=== PATIENT | female | born 1940 | race Hispanic/Latino ===

== ENCOUNTER 2016-07-21 14:08 | Inpatient (IN) | payer MEDICARE, BC ==
[2016-07-21 14:15] VITALS: BMI 24.3
--- NOTE | 2016-07-21 14:20 | ED PDOC ---
Arrival/HPI - General Time Seen by Provider: 07/21/16 14:17 Historian: Patient - History of Present Illness Narrative History of Present Illness (Text): 07/21/16 14:47 Maoj Chahal is a 75 year old female whose past medical history includes Hyperlipidemia, Hypertension, Anxiety, and Bradycardia, who presents to the emergency department complaining of lightheadedness and chest palpitations for one week. Patient's symptoms are also accompanying with generalized weakness. Patient does not report chest pain, however when laid down patient feels left sided chest discomfort described as achy. Patient also reports feeling stressed because of her is feeling ill. Patient otherwise denies any fever, chills, shortness of breath, nausea, vomiting, diarrhea, urinary symptoms, back pain, neck pain, headache, or any other complaints. PMD: Dr. Spear Order Schedule Clerk: Dr. Cotto and Dr. Daomn Time/Duration: 1 week Symptom Onset: Gradual Symptom Course: Unchanged Activities at Onset: Light Context: Home Past Medical History - Provider Review Nursing Documentation Reviewed: Yes - Infectious Disease Hx of Infectious Diseases: None - Tetanus Immunization Tetanus Immunization: Unknown - Cardiac Hx Cardiac Disorders: Yes Hx Congestive Heart Failure: Yes Hx Hypertension: Yes - Pulmonary Hx Chronic Obstructive Pulmonary Disease (COPD): No - Neurological HX Cerebrovascular Accident: Yes (2006) - HEENT Hx HEENT Disorder: Yes (pt. neto issa.) - Renal Hx Renal Failure: No - Endocrine/Metabolic Hx Diabetes Mellitus Type 1: No Hx Diabetes Mellitus Type 2: No Hx Hypothyroidism: No - Hematological/Oncological Hx Cancer: No - Integumentary Hx Dermatological Disorder: No - Musculoskeletal/Rheumatological Hx Arthritis: No Hx Falls: No - Gastrointestinal Hx Gastroesophageal Reflux: No - Genitourinary/Gynecological Hx Genitourinary Disorders: No - Psychiatric Hx Psychophysiologic Disorder: No Hx Depression: No Hx Emotional Abuse: No Hx Physical Abuse: No Hx Substance Use: No - Surgical History Hx Coronary Stent: Yes (stent to carotid artery) Hx Hysterectomy: Yes - Anesthesia Hx Anesthesia: Yes Hx Anesthesia Reactions: No Hx Malignant Hyperthermia: No - Suicidal Assessment Feels Threatened In Home Enviroment: No Family/Social History - Physician Review Nursing Documentation Reviewed: Yes Family/Social History: No Known Family HX Smoking Status: Never Smoked Hx Alcohol Use: No Hx Substance Use: No Hx Substance Use Treatment: No Allergies/Home Meds Allergies/Adverse Reactions: Allergies No Known Allergies Allergy (Verified 05/05/16 18:23) Home Medications: Home Meds Medication Instructions Recorded Confirmed Alprazolam [Xanax] 0.25 mg PO PRN PRN 08/26/11 07/21/16 Clopidogrel [Plavix] 1 tab PO DAILY 05/05/16 07/21/16 Losartan/Hydrochlorothiazide 1 tab PO DAILY 05/05/16 07/21/16 [Hyzaar 100-25 Tablet] Aspirin [Aspirin Chewable] 1 tab PO DAILY 05/18/16 07/21/16 Atorvastatin [Lipitor] 10 mg PO DIN 06/18/16 07/21/16 Metoprolol Tartrate [Lopressor] 12.5 mg PO BID 06/18/16 07/21/16 Review of Systems - Physician Review All systems were reviewed & negative as marked: Yes - Review of Systems Constitutional: Other (Generalized Weakness). absent: Fevers Eyes: Normal ENT: Normal Respiratory: Normal Cardiovascular: Chest Pain, Palpitations Gastrointestinal: Normal. absent: Abdominal Pain, Diarrhea, Nausea, Vomiting Genitourinary Female: Normal. absent: Dysuria, Frequency, Hematuria, Urine Output Changes Musculoskeletal: Normal. absent: Back Pain, Neck Pain Skin: Normal Neurological: Other (Lightheadedness). absent: Headache Endocrine: Normal Hemo/Lymphatic: Normal Psychiatric: Normal Physical Exam Vital Signs Reviewed: Yes Vital Signs Temp Pulse Resp BP Pulse Ox 07/21/16 14:09 98.5 F 91 H 18 142/73 97 Temperature: Afebrile Blood Pressure: Normal Pulse: Tachycardic Respiratory Rate: Normal Appearance: Positive for: Well-Appearing, Non-Toxic, Comfortable Pain Distress: None Mental Status: Positive for: Alert and Oriented X 3 - Systems Exam Head: Present: Atraumatic, Normocephalic Pupils: Present: PERRL Extroacular Muscles: Present: EOMI Conjunctiva: Present: Normal Mouth: Present: Moist Mucous Membranes Neck: Present: Normal Range of Motion Respiratory/Chest: Present: Clear to Auscultation, Good Air Exchange. No: Respiratory Distress, Accessory Muscle Use Cardiovascular: Present: Regular Rate and Rhythm, Normal S1, S2. No: Murmurs Abdomen: Present: Normal Bowel Sounds. No: Tenderness, Distention, Peritoneal Signs Back: Present: Normal Inspection Upper Extremity: Present: Normal Inspection. No: Cyanosis, Edema Lower Extremity: Present: Normal Inspection. No: Edema Neurological: Present: GCS=15, CN II-XII Intact, Speech Normal Skin: Present: Warm, Dry, Normal Color. No: Rashes Psychiatric: Present: Alert, Oriented x 3, Normal Insight, Normal Concentration Medical Decision Making ED Course and Treatment: 07/21/16 14:19 Impression: 75 year old female complaining of lightheadedness and chest palpitations. Differential Diagnosis include but are not limited to: Lightheadedness R/O ACS, near syncope Plan: -- Head CT -- Chest X-ray -- EKG -- Labs, cardiac enzymes, Urinalysis -- Reassess and disposition Progress Notes: EKG: Ordered, reviewed, and independently interpreted the EKG. Rate : 90 BPM Rhythm : NSR Interpretation : Sinus Arrhythmia, 1st Degree Block Comparison : No change from 06/16/16 07/21/16 - Case was discussed with Dr. Reddy who is covering for Dr. Damon. He states there could be EKG changes and recommends admitting. Patient states that she had holter done recently and they told her she most likely will need a pacemaker. I discussed this case with Dr Dunbar who agrees to admit patient under her service. - Lab Interpretations Lab Results: 07/21/16 14:50 07/21/16 14:50 Lab Results 07/21/16 14:50: WBC 4.9, RBC 4.16, Hgb 13.4, Hct 37.8, MCV 90.9, MCH 32.2, MCHC 35.4, RDW 13.7, Plt Count 240, MPV 10.2, Gran % 66.6, Lymph % (Auto) 26.2, [place] % (Auto) 5.6, Eos % (Auto) 1.4 L, Baso % (Auto) 0.2, Gran # 3.23, Lymph # 1.3, [place] # 0.3, Eos # 0.1, Baso # 0.01, Sodium 140, Potassium 3.3 L, Chloride 103, Carbon Dioxide 26, Anion Gap 14, BUN 19, Creatinine 0.6, Est GFR ( Amer) > 60, Est GFR (Non-Af Amer) > 60, Random Glucose 118 H, Calcium 9.7, Magnesium 1.7, Total Bilirubin 0.5, AST 44 H, ALT 48, Alkaline Phosphatase 54, Lactate Dehydrogenase 401, Total Creatine Kinase 179, Troponin I < 0.01, Total Protein 7.7, Albumin 4.1, Globulin 3.6, Albumin/Globulin Ratio 1.1 I have reviewed the lab results: Yes - RAD Interpretation Radiology Orders: 07/21/16 14:36 CHEST PORTABLE [RAD] Stat 07/21/16 14:37 HEAD W/O CONTRAST [CT] Stat - Medication Orders Current Medication Orders: Discontinued Medications Potassium Chloride (K-Dur 20 Meq Er Tab) 40 meq PO STAT STA Stop: 07/21/16 15:26 Last Admin: 07/21/16 15:32 Dose: 40 MEQ - Scribe Statement The provider has reviewed the documentation as recorded by the Kleber Collins Provider Attestation: All medical record entries made by the Kleber were at my direction and personally dictated by me. I have reviewed the chart and agree that the record accurately reflects my personal performance of the history, physical exam, medical decision making, and the department course for this patient. I have also personally directed, reviewed, and agree with the discharge instructions and disposition. Disposition/Present on Arrival - Present on Arrival Any Indicators Present on Arrival: No History of DVT/PE: No History of Uncontrolled Diabetes: No Urinary Catheter: No History Surgical Site Infection Following: None - Disposition Have Diagnosis and Disposition been Completed?: Yes Diagnosis: Palpitations, Near syncope Disposition: HOSPITALIZED Disposition Time: 16:45 Patient Plan: Admission Condition: FAIR
[2016-07-21 14:58] LABS: ADD MANUAL DIFF? NO
[2016-07-21 15:10] LABS: BASO # 0.01 K/mm3 (0.0-2.0); BASO % 0.2 % (0.0-3.0); EOS # 0.1 (0.0-0.7); EOS % 1.4 % (1.5-5.0); GRAN # 3.23 (1.4-6.5); GRAN % 66.6 % (50.0-68.0); HEMATOCRIT 37.8 % (36.0-48.0); LYMPH # 1.3 (1.2-3.4); LYMPH % 26.2 % (22.0-35.0); MEAN CELL VOLUME 90.9 fL (80.0-105.0); MEAN CORPUSCULAR HEMOGLOBIN 32.2 pg (25.0-35.0); MEAN CORPUSCULAR HGB CONC 35.4 g/dl (31.0-37.0); MEAN PLATELET VOLUME 10.2 fl (7.0-11.0); MONO # 0.3 (0.1-0.6); MONO % 5.6 % (1.0-6.0); PLATELET COUNT 240 10^3/uL (120.0-450.0); RED CELL DISTRIBUTION WIDTH 13.7 % (11.5-14.5); WHITE BLOOD COUNT 4.9 10^3/ul (4.5-11.0)
--- NOTE | 2016-07-21 15:12 | RAD ---
HISTORY: near syncope COMPARISON: No prior. FINDINGS: LUNGS: No active pulmonary disease. PLEURA: No significant pleural effusion identified, no pneumothorax apparent. CARDIOVASCULAR: Normal. OSSEOUS STRUCTURES: No significant abnormalities. VISUALIZED UPPER ABDOMEN: Normal. OTHER FINDINGS: Note made of what probably represent multiple tiny metallic clips in the left axillary soft tissues or possibly within the overlying breast. Clinic correlation with surgical history recommended. IMPRESSION: No active disease.
[2016-07-21 15:16] LABS: ALB/GLOB RATIO 1.1 (1.1-1.8); ALKALINE PHOSPHATASE 54 U/L (38-133); ALT/SGPT 48 U/L (7-56); AST/SGOT 44 U/L (15-39); BILIRUBIN,TOTAL 0.5 mg/dL (0.2-1.3); BLOOD UREA NITROGEN 19 mg/dL (7-21); CALCIUM 9.7 mg/dL (8.4-10.5); CARBON DIOXIDE 26 mmol/L (21-33); CHLORIDE 103 mmol/L (98-107); GFR AFRICAN-AMERICAN > 60; GLUCOSE,RANDOM 118 mg/dL (70-110); MAGNESIUM 1.7 mg/dL (1.7-2.2); POTASSIUM 3.3 mmol/L (3.6-5.0); SODIUM 140 mmol/L (132-148); TOTAL PROTEIN 7.7 g/dL (5.8-8.3)
[2016-07-21] MEDS ORDERED: Potassium Chloride 20 mEq ER Tab PO STA (15:25)
--- NOTE | 2016-07-21 15:31 | CT ---
PROCEDURE: CT HEAD WITHOUT CONTRAST. HISTORY: near syncope COMPARISON: Comparison made with CT scan brain dated 04/27/2016 TECHNIQUE: Axial computed tomography images were obtained through the head/brain without intravenous contrast. Radiation dose: Total exam DLP = 677.45 mGy-cm. This CT exam was performed using one or more of the following dose reduction techniques: Automated exposure control, adjustment of the mA and/or kV according to patient size, and/or use of iterative reconstruction technique. FINDINGS: HEMORRHAGE: No acute parenchymal, subarachnoid or extra-axial hemorrhage. BRAIN: Mild chronic periventricular white matter ischemic changes are again seen extending peripherally into the deep white matter both cerebral hemispheres. Additionally, more discrete chronic appearing infarct changes in the left basal ganglia again noted. There may be a few tiny chronic right basal nuclei lacunar type infarcts as well. . Vascular calcifications are present. VENTRICLES: Mild generalized volume loss evidenced by enlargement of the ventricles and sulci. CALVARIUM: There are no acute calvarial fractures. PARANASAL SINUSES: Minor mucosal thickening seen within multiple ethmoid air cells as well as inferolateral aspect left chamber sphenoid sinus. MASTOID AIR CELLS: Unremarkable as visualized. No inflammatory changes. OTHER FINDINGS: Note again made of a few tiny scalp calcifications unchanged IMPRESSION: No acute intracranial hemorrhage. Mild chronic white matter ischemic changes. Chronic appearing left basal ganglia infarct. There may also be a few tiny chronic lacunar type infarct right basal ganglia. Mild generalized volume loss.
[2016-07-21 15:33] LABS: TROPONIN I < 0.01 ng/mL
--- NOTE | 2016-07-21 18:38 | CON ---
DATE: 07/21/2016 REASON FOR CONSULTATION: Dizziness, palpitation. HISTORY OF PRESENT ILLNESS: The patient is a 75-year-old white female who had a history of syncope i n the past and was observed iatrogenic bradycardia. The patient was apparently taking 2 beta roxane s together and was taken off one of them and the second one was reduced in dose to half. The patient underwent an external monitor for 28 days by veterinary medicine scientist, Dr. Ziegler and according to the angi haji, she was told that she may need a pacemaker in the future. The patient presented because of pa lpitations and at times dizziness. The patient denies any syncope. The patient does have a history of stroke some 10 years ago followed by left carotid endarterectomy. The patient has no residual wea kness or speech difficulty. SOCIAL HISTORY: The patient is a nonsmoker. She is . Her is being admitted to [facility]. REVIEW OF SYSTEMS: The patient complains of anxiety and is going through stress. She denies any tessa sea or vomiting, no diarrhea, no fever or chills. HOME MEDICATIONS: Include Xanax 0.25 mg p.r.n., Cozaar, hydrochlorothiazide 100/25 mg daily, Plavix 75 mg once a day, aspirin 81 mg once a day, metoprolol 12.5 mg once a day, Lipitor 10 mg once a day. PHYSICAL EXAMINATION: GENERAL: The patient is an elderly female who does not appear to be in acute distress. VITAL SIGNS: Blood pressure 142/73, heart rate 91, temperature 98.5, respirations 18. HEENT: Normocephalic. NECK: No JVD. CHEST: Clear. HEART: S1, S2 regular. ABDOMEN: Soft. EXTREMITIES: No edema. LABORATORY DATA: CBC: WBC 4.9, hemoglobin 15.4, hematocrit 37.8, platelet count 240,000. SMA-7: S odium 140, potassium 3.3, chloride 103, CO2 26, glucose 118, BUN 19, creatinine 0.6. One set of trop onin is negative. EKG revealed sinus rhythm, first degree AV block and 1 blocked sinus beat. Head C T scan performed on admission revealed no acute intracranial hemorrhage, mild chronic white matter is chemic changes, chronic appearing left basal ganglia infarct. A few tiny chronic lacunar type infarc ts in the right basal ganglia. This past April the patient had an echocardiographic study which re vealed normal ejection fraction with mild MR, mild TR and mild pulmonary hypertension. Lexiscan was performed the same month and was negative. ASSESSMENT: 1. History of palpitation and dizziness. Both were not coinciding. 2. Hypokalemia. 3. Hypertension. 4. Anxiety. RECOMMENDATIONS: Potassium was replaced orally with a total of 40 mEq of potassium chloride. I vladimir mmend resuming the patient's home medications including aspirin, Plavix, Lopressor, Lipitor and p.r.n . Xanax. Start K-Dur at 20 mEq orally daily. Obtain carotid ultrasound. Celestine Lennon MD cc: [id number] TT: 07/21/2016 18:37:34 Confirmation # [id number] Dictation # [id number] jn
--- NOTE | 2016-07-21 19:28 | HP ---
HISTORY OF PRESENT ILLNESS: The patient is a 75-year-old, seen and examined. She came to Emergency Room and was feeling very anxious getting palpitations at times and heart sinking at times and she fe lt as if she is going to pass out. The patient's who I have been taking care of is in the spital. She called me earlier this morning and she does admit she is feeling anxious since her husba nd is in the hospital. She also complained of generalized weakness; however, she does not have any c hest pain, denies any fever or chills. No nausea, vomiting, no diarrhea. Does admit having decrease d appetite. PAST MEDICAL HISTORY: Significant for: 1. History of hypertension. 2. Bradycardia. At one point, she was bradycardic and she had altered mental status. She was intub ated for a brief period of time, but she was successfully extubated. The patient had stress test don e on 05/10 and was found to be unremarkable. She has all the neurological workup done including MRI of the brain that was negative. Carotid Dopplers were negative. EEG was unremarkable. 3. Hyperlipidemia. 4. History of CA breast. PAST SURGICAL HISTORY: Significant for carotid endarterectomy and left breast biopsy. ALLERGIES: She is not allergic to any medications. MEDICATIONS AT HOME: She is on aspirin 81 daily. She used to be on Bystolic that was discontinued. Losartan 100 mg daily, hydrochlorothiazide 25 daily, Plavix 75 daily, Xanax 0.2 twice a day. SOCIAL HISTORY: She lives with her . She has a daughter who is supportive and around her. D enies alcohol use. REVIEW OF SYSTEMS: Significant for generalized weakness and feeling dizzy at times. PHYSICAL EXAMINATION: GENERAL: She is awake and alert, communicative. VITAL SIGNS: She is afebrile, pulse 84, respirations 20, blood pressure 109/60. LUNGS: Bilateral fair airflow, no rhonchi or crackle. HEART: S1, S2 audible. ABDOMEN: Soft, nontender, no rebound, no guarding. NEUROLOGIC: She is awake and alert, communicative. Moves all extremities. LABORATORY DATA: WBC is 4.9, hemoglobin 13.4, hematocrit 37.8, platelet 240. Chemistry: Sodium 140 , potassium 3.6, chloride 103, CO2 of 26, BUN 19, creatinine 0.6, blood sugar 118. LFTs are within n ormal limits. ASSESSMENT: 1. Dizziness with intermittent palpitation and feeling lightheaded. 2. Hypertension. 3. Hyperlipidemia. 4. History of cancer of breast. PLAN: The patient had cardiac workup done as outpatient by Dr. Ziegler at [facility] and she was told that she has Mobitz II block and will eventually need a pacemaker. So the patient got nervous a nd came to Emergency Room for evaluation by Dr. Damon. So, the plan is we will keep her on cardiac mo nitoring. We will monitor her pulse. We will resume her usual medication. Avoid beta roxane and Polina Damon will evaluate the patient on Saturday and make further decisions. Pranay Dunbar MD cc: [phone] TT: 07/21/2016 19:27:38 ne
--- NOTE | 2016-07-21 19:40 | US ---
HISTORY: Leg pain and swelling. Evaluate for DVT PHYSICIAN(S): Ovi Pedroza MD. TECHNIQUE: Duplex sonography and color-flow Doppler with graded compression were used to evaluate the deep venous systems of both lower extremities. FINDINGS: The visualized deep venous systems of both lower extremities are sonographically normal and compressible. Normal wave forms and augmentation are seen. There is no sonographic evidence for deep venous thrombosis in the visualized segments of both lower extremities. IMPRESSION: No sonographic evidence for deep venous thrombosis in the visualized segments of both lower extremities.
[2016-07-21] MEDS ORDERED: Pneumococcal 23-Valent Vaccine IM ONE (20:30)
--- NOTE | 2016-07-22 09:44 | CARD ---
APPROVED REPORT EKG Measurement Heart [id number] <Conclusion> Sinus rhythm with 1st degree AVB Blocked APC RBBB NSSTW changes Mildly prolonged QTc
--- NOTE | 2016-07-22 10:55 | PN ---
DATE: 07/22/2016 SUBJECTIVE: The patient 75 years old, seen and examined, lying in bed, seems to be comfortable. She states she feels a lot better. No more dizziness, no weakness, no chest pain, no shortness of breat h. PHYSICAL EXAMINATION: VITAL SIGNS: She is afebrile. Pulse 80, respirations 18, blood pressure 111/69. LUNGS: Bilateral fair airflow. No rhonchi or crackle. HEART: S1, S2 audible. ABDOMEN: Soft, nontender. No rebound, no guarding. NEUROLOGIC: She is awake and alert, communicative, ambulatory without assistance. Her leg Doppler i s negative for DVT. ASSESSMENT AND PLAN: 1. Frequent episodes of weakness and dizziness associated with palpitation. 2. Recent history of significant bradycardia ____ to altered mental status, and she ended up getting intubated. 3. Hyperlipidemia. She had a workup done previously. New workup has been negative. She had a [place] er placed by Dr. Ziegler as outpatient for 28 days, and she was told that ____ she might end up needin g pacemaker. PLAN: To watch patient overnight, and tomorrow, she will be evaluated by Dr. Damon. I will make furt her decision and make disposition plan. Pranay Dunbar MD cc: [phone] TT: 07/22/2016 10:54:18 Confirmation # [id number] Dictation # [id number] riya
[2016-07-22] MEDS: Potassium Chloride 20 mEq ER Tab PO SCH (13:50)
--- NOTE | 2016-07-22 13:58 | PN ---
DATE: 07/22/2016 The patient denies any palpitation or dizziness since her admission to telemetry. No reported ventri cular arrhythmia. PHYSICAL EXAMINATION: VITAL SIGNS: Blood pressure 103/54, heart rate 70, temperature 98.8, respiration 20. HEENT: Normocephalic. NECK: No JVD. CHEST: Clear. HEART: S1, S2 regular. EXTREMITIES: No edema. Venous Doppler of lower extremities: No sonographic evidence of DVT. Magnesium level is 1.7. ASSESSMENT: 1. Palpitations and dizziness. 2. History of cerebrovascular accident with left carotid endarterectomy 10 years ago. 3. Hypokalemia. 4. Hypertension and hyperlipidemia. RECOMMENDATIONS: Continue aspirin 81 mg once a day, Cozaar at 100 mg once a day, hydrochlorothiazide 25 mg once a day, Lipitor at 10 mg once a day, Plavix 75 mg once a day. Start K-Dur at 20 mEq orall y daily and obtain followup BMP in a.m. Celestine Lennon MD cc: [id number] TT: 07/22/2016 13:57:11 Confirmation # [id number] Dictation # [id number] en
[2016-07-23 05:56] VITALS: O2SAT 97
[2016-07-23 07:27] LABS: BLOOD UREA NITROGEN 25 mg/dL (7-21); CALCIUM 9.3 mg/dL (8.4-10.5); CARBON DIOXIDE 25 mmol/L (21-33); CHLORIDE 103 mmol/L (98-107); GFR AFRICAN-AMERICAN > 60; GLUCOSE,RANDOM 81 mg/dL (70-110); POTASSIUM 3.7 mmol/L (3.6-5.0); SODIUM 139 mmol/L (132-148)
[2016-07-23] MEDS: Potassium Chloride 20 mEq ER Tab PO SCH (07:56)
--- NOTE | 2016-07-23 11:14 | PN ---
DATE: 07/23/2016 CARDIOLOGY FOLLOWUP The patient is ambulating in the room without symptoms. PHYSICAL EXAMINATION: VITAL SIGNS: Blood pressure 130/80. The heart rate is in the 60s. NECK: Negative JVD. LUNGS: Without rales. HEART: Reveals S1, S2. EXTREMITIES: Without edema. LABORATORY DATA: Laboratories reveal troponins are negative x 1. I reviewed her stress test done in 05/2016, which shows normal LV function with no ischemia. In addition, her echocardiogram was unremarkable. Monitoring her on telemetry for the past 48 hours reveals no arrhythmias. IMPRESSION: 1. Palpitations. 2. Atypical chest pain. 3. No evidence for acute coronary syndrome. 4. Hypertension. 5. Hypercholesterolemia. PLAN: Given these findings, the patient's symptoms may be very likely due to her anxiety that is ass ociated with the hospitalization of her . I have reassured the patient that her cardiac anato my is normal. I have arranged for the patient to come in 3 times a week to start an exercise program where she will be supervised by a nurse, and the aerobic exercise, which will help her overall cardiovascular condi tions and symptoms. Ovi Damon MD cc: [phone] TT: 07/23/2016 11:00:53 Confirmation # [id number] Dictation # [id number] jn
[2016-07-23 12:00] VITALS: BP 115/70; PULSE 86; RESP 15; TEMP 97.1
--- NOTE | 2016-07-23 17:15 | DS ---
HISTORY OF PRESENT ILLNESS: The patient is 75 years old. Seen and examined. Sitting in chair, seems to be comfortable. No nausea, vomiting or diarrhea. No more palpitations. PHYSICAL EXAMINATION: VITAL SIGNS: She is afebrile, pulse 86, respirations 15, blood pressure 115/70. LUNGS: Bilateral good airflow, no rhonchi or crackle. HEART: S1, S2 audible. ABDOMEN: Soft, nontender, no rebound, no guarding. NEUROLOGIC: She is awake and alert, communicative, ambulatory. EXTREMITIES: Bilateral legs with no edema. LABORATORY EXAMINATION: Sodium 139, potassium 3.7, chloride 103, CO2 25, BUN 25, creatinine 0.7, blo od sugar of 81. ASSESSMENT: 1. Near syncope with dizziness. 2. Feeling of palpitation; however, was not noticed to have tachycardia while she is here. 3. Hypertension. 4. Hyperlipidemia. 5. Subjective feeling of palpitation and probably anxiety disorder. PLAN: Discussed with Dr. Damon. There is no evidence of ischemia and heart block. The patient had a Holter placed as outpatient by Dr. Santiago and there was no evidence of bradycardia or heart b lock, so there is no role of placing a pacemaker. However, Dr. Damon recommended for enrollment in [facility] and for that, the patient will be scheduled as outpatient and will be discharged home today. She will resume her medication as prior to admission. Pranay Dunbar MD cc: [phone] TT: 07/23/2016 17:15:19 ln
== END 2016-07-23 13:45 | disposition home or self-care (01) | DRG 880 ==
LOC: ED 14:08 → ERH 16:45 → 2RNO 18:30
PROVIDERS: ADMIT Internal Medicine; ATTEND Internal Medicine
DX: F41.9 Anxiety disorder, unspecified (principal); I11.0 Hypertensive heart disease with heart failure; I50.9 Heart failure, unspecified; R00.1 Bradycardia, unspecified; E87.6 Hypokalemia; E78.5 Hyperlipidemia, unspecified; E78.00 Pure hypercholesterolemia, unspecified; Z79.02 Long term (current) use of antithrombotics/antiplatelets; Z79.82 Long term (current) use of aspirin; Z79.899 Other long term (current) drug therapy; Z85.3 Personal history of malignant neoplasm of breast; Z86.73 Personal history of transient ischemic attack (TIA), and cerebral infarction without residual deficits; Z90.710 Acquired absence of both cervix and uterus; Z95.5 Presence of coronary angioplasty implant and graft; R40.2412 Glasgow coma scale score 13-15, at arrival to emergency department; R42 Dizziness and giddiness; R07.89 Other chest pain; R55 Syncope and collapse

== ENCOUNTER 2016-07-24 21:12 | Inpatient (IN) | payer MEDICARE, BC ==
[2016-07-24 21:12] VITALS: BMI 24.3
--- NOTE | 2016-07-24 21:26 | ED PDOC ---
Arrival/HPI - General Chief Complaint: Syncope Time Seen by Provider: 07/24/16 21:15 Historian: Patient, Family - History of Present Illness Narrative History of Present Illness (Text): 07/24/16 21:25 Majo Chahal is a 75 year old female, whose past medical history includes hyperlipidemia, hypertension, carotid endarterectomy, anxiety, breast cancer, and bradycardia, who presents to the ED brought in by EMS accompanied by family status post syncopal episode tonight. Daughter states patient was eating at a restaurant tonight when she noted patient began leaning forward and had a syncopal episode. Patient states she does not recall the incident. Patient states she has been experiencing associated light-headedness and notes she was recently admitted to the hospital on 07/21/2016 for light-headedness and palpitations, discharged yesterday. Patient denies any chest pain, shortness of breath, headache, dizziness, fever, chills, abdominal pain, nausea, vomiting, diarrhea, urinary symptoms, back pain, neck pain, or any other complaints. PMD: Dr. Rogelio Spear Rail Car Welder: Dr. Abbey Damon Time/Duration: Other (tonight) Symptom Onset: Gradual Symptom Course: Unchanged Activities at Onset: Light Context: Other (Restaurant) Past Medical History - Provider Review Nursing Documentation Reviewed: Yes - Infectious Disease Hx of Infectious Diseases: None - Tetanus Immunization Tetanus Immunization: Unknown - Reproductive Menopause: Yes - Cardiac Hx Cardiac Disorders: Yes (bradycardia) Hx Congestive Heart Failure: Yes Hx Hypertension: Yes - Pulmonary Hx Chronic Obstructive Pulmonary Disease (COPD): Yes - Neurological HX Cerebrovascular Accident: Yes - HEENT Hx HEENT Disorder: Yes ( uses maegan.) - Renal Hx Renal Disorder: No Hx Renal Failure: No - Endocrine/Metabolic Hx Endocrine Disorders: No Hx Diabetes Mellitus Type 1: No Hx Diabetes Mellitus Type 2: No Hx Hypothyroidism: No - Hematological/Oncological Hx Blood Disorders: Yes Hx Cancer: Yes (BREAST LUMPECTOMY WITH RADIATION AND CHEMO COMPLETED) Hx Chemotherapy: Yes - Integumentary Hx Dermatological Disorder: No - Musculoskeletal/Rheumatological Hx Musculoskeletal Disorders: No Hx Arthritis: No Hx Falls: No - Gastrointestinal Hx Gastrointestinal Disorders: No Hx Gastroesophageal Reflux: No - Genitourinary/Gynecological Hx Genitourinary Disorders: Yes (BREAST LUMPECTOMY) - Psychiatric Hx Psychophysiologic Disorder: Yes Hx Anxiety: Yes Hx Depression: No Hx Emotional Abuse: No Hx Physical Abuse: No Hx Substance Use: No - Surgical History Hx Coronary Stent: Yes (stent to carotid artery) Hx Hysterectomy: Yes - Anesthesia Hx Anesthesia: Yes Hx Anesthesia Reactions: No Hx Malignant Hyperthermia: No - Suicidal Assessment Feels Threatened In Home Enviroment: No Family/Social History - Physician Review Nursing Documentation Reviewed: Yes Family/Social History: No Known Family HX Smoking Status: Never Smoked Hx Alcohol Use: No Hx Substance Use: No Hx Substance Use Treatment: No Allergies/Home Meds Allergies/Adverse Reactions: Allergies No Known Allergies Allergy (Verified 07/24/16 21:24) Home Medications: Home Meds Medication Instructions Recorded Confirmed Alprazolam [Xanax] 0.25 mg PO PRN PRN 08/26/11 07/24/16 Clopidogrel [Plavix] 1 tab PO DAILY 05/05/16 07/24/16 Losartan/Hydrochlorothiazide 1 tab PO DAILY 05/05/16 07/24/16 [Hyzaar 100-25 Tablet] Aspirin [Aspirin Chewable] 1 tab PO DAILY 05/18/16 07/24/16 Atorvastatin [Lipitor] 10 mg PO DIN 06/18/16 07/24/16 Metoprolol Tartrate [Lopressor] 12.5 mg PO BID 06/18/16 07/24/16 Review of Systems - Physician Review All systems were reviewed & negative as marked: Yes - Review of Systems Constitutional: Normal. absent: Fevers Eyes: Normal ENT: Normal Respiratory: Normal. absent: SOB, Cough Cardiovascular: Syncope Gastrointestinal: Normal. absent: Abdominal Pain, Constipation, Diarrhea, Nausea Genitourinary Female: Normal. absent: Dysuria, Frequency, Hematuria, Urine Output Changes Musculoskeletal: Normal. absent: Back Pain, Neck Pain Skin: Normal. absent: Rash Neurological: Other (+light-headedness). absent: Headache, Dizziness Endocrine: Normal Hemo/Lymphatic: Normal Psychiatric: Normal Physical Exam Vital Signs Reviewed: Yes Vital Signs Temp Pulse Resp BP Pulse Ox 07/24/16 22:57 100 H 16 124/54 L 97 07/24/16 21:21 98 F 44 L 18 135/52 L 98 Temperature: Afebrile Blood Pressure: Normal Pulse: Bradycardic Respiratory Rate: Normal Appearance: Positive for: Well-Appearing, Non-Toxic, Comfortable Pain Distress: None Mental Status: Positive for: Alert and Oriented X 3 - Systems Exam Head: Present: Atraumatic, Normocephalic Pupils: Present: PERRL Extroacular Muscles: Present: EOMI Conjunctiva: Present: Normal Mouth: Present: Moist Mucous Membranes Neck: Present: Normal Range of Motion Respiratory/Chest: Present: Clear to Auscultation, Good Air Exchange. No: Respiratory Distress, Accessory Muscle Use Cardiovascular: Present: Normal S1, S2, Bradycardic. No: Murmurs Abdomen: Present: Normal Bowel Sounds. No: Tenderness, Distention, Peritoneal Signs Back: Present: Normal Inspection Upper Extremity: Present: Normal Inspection. No: Cyanosis, Edema Lower Extremity: Present: Normal Inspection. No: Edema Neurological: Present: GCS=15, CN II-XII Intact, Speech Normal Skin: Present: Warm, Dry, Normal Color. No: Rashes Psychiatric: Present: Alert, Oriented x 3, Normal Insight, Normal Concentration Medical Decision Making ED Course and Treatment: 07/24/16 21:25 Impression: 75 y/o female s/p syncopal episode. Also c/o light-headedness. Differential Diagnosis included but are not limited to: ACS vs. heart block vs. electrolyte abnormalities Plan: -- EKG -- Chest X-ray -- Labs, cardiac enzymes -- Reassess and disposition Prior Visits: Notes and results from previous visits were reviewed. On 07/21/2016, pt was seen in the Emergency department for light-headedness and palpitations. Pt was admitted to the hospital for further evaluations. Progress Notes: 07/24/16 21:37 Reviewed EKG, marked sinus bradycardia at 41 bpm. RBBB. 3rd degree AV block. 07/24/16 21:[address] Aly, who is aware and agrees with plan. Pt to be admitted to ICU. 07/24/16 21:[address] Damon, who is aware and agrees with plan. Low dose dobutamine ordered. Will monitor pt. 07/24/16 22:27 Reviewed radiology, Chest X-ray shows no active disease. 07/24/16 22:[address] Dunbar, who is aware and agrees with plan. Accepts pt in to her service. Pt will be admitted to ICU for heart block. Requests Dr. Retana on consult. Discussed results and hospital admission plan with pt and family, who are aware and verbalize understanding. - Critical Care Critical Care Minutes: 30 minutes - Lab Interpretations Lab Results: 07/24/16 21:39 07/24/16 21:39 Lab Results 07/24/16 21:39: WBC 6.8 D, RBC 4.17, Hgb 13.4, Hct 38.3, MCV 91.8, MCH 32.1, MCHC 35.0, RDW 13.7, Plt Count 258, MPV 10.1, PT 11.9 H, INR 1.10 H, APTT 27.5, Sodium 139, Potassium 4.0, Chloride 104, Carbon Dioxide 21, Anion Gap 18, BUN 25 H, Creatinine 0.8, Est GFR ( Amer) > 60, Est GFR (Non-Af Amer) > 60, Random Glucose 170 H, Calcium 9.6, Total Bilirubin 0.6, AST 41 H, ALT 38, Alkaline Phosphatase 63, Lactate Dehydrogenase 598, Total Creatine Kinase 305 H , CK-MB (CK-2) 7.4 H, CK-MB (CK-2) % 2.4 L, Troponin I < 0.01, Total Protein 7.7 , Albumin 4.2, Globulin 3.5, Albumin/Globulin Ratio 1.2 I have reviewed the lab results: Yes - RAD Interpretation Radiology Orders: 07/24/16 21:42 CHEST PORTABLE [RAD] Stat Associate Director Of Sales: ED Physician - EKG Interpretation Interpreted by ED Physician: Yes Type: 12 lead EKG - Medication Orders Current Medication Orders: Acetaminophen/Butalbital/Caffeine (Fioricet) 1 tab PO Q4H PRN PRN Reason: Headache Last Admin: 07/25/16 01:59 Dose: 1 TAB Re-Assess: MAR Pain Assessment Document 07/25/16 02:59 MONTANEZ (Rec: 07/25/16 05:17 MONTANEZ [id number]) Pain Reassessment Is this a pain reassessment? Yes Sleep Is patient sleeping during reassessment? Yes Alprazolam (Xanax) 0.25 mg PO Q12 [facility]ELLEE PRN Reason: Protocol Stop: 08/01/16 22:01 Last Admin: 07/25/16 21:17 Dose: 0.25 MG Behavioural Document 07/25/16 21:17 DS (Rec: 07/25/16 21:17 DS [id number]) Nonmedicinal Nonmedicinal Interventions Therapeutic Communication Behavior Behavior for Medication: Anxiety Re-Assess: Reassess Psych Meds Document 07/25/16 22:17 DS (Rec: 07/25/16 22:24 DS [id number]) Reassess Psych Med Effective Aspirin (Aspirin Chewable) 81 mg PO DAILY [facility] Last Admin: 07/25/16 09:19 Dose: 81 MG Atorvastatin Calcium (Lipitor) 10 mg PO DIN [facility] Last Admin: 07/25/16 17:00 Dose: 10 MG Clopidogrel Bisulfate (Plavix) 75 mg PO DAILY [facility] Last Admin: 07/25/16 09:19 Dose: 75 MG Famotidine (Pepcid) 20 mg PO BID [facility] Last Admin: 07/25/16 17:00 Dose: 20 MG Hydralazine HCl (Apresoline) 10 mg IVP Q6 PRN PRN Reason: Systolic Blood Pressure Dobutamine HCl/Dextrose (Dobutamine/Dextrose 5% 500mg/250ml) 250 mls @ 4.525 mls/hr IV .Q24H PRN; Protocol; 2.5 MCG/KG/MIN PRN Reason: TITRATE PER PROTOCOL Last Admin: 07/24/16 22:03 Dose: 4.525 MLS/HR eMAR Start Stop Document 07/24/16 22:03 EKEOO (Rec: 07/24/16 22:04 EKEOO [id number]) Intravenous Solution Start Date 07/24/16 Start Time 22:04 Sodium Chloride (Sodium Chloride 0.9%) 1,000 mls @ 100 mls/hr IV .Q10H [facility] Last Admin: 07/25/16 22:02 Dose: 100 MLS/HR eMAR Start Stop Document 07/25/16 22:02 DS (Rec: 07/25/16 22:02 DS [id number]) Intravenous Solution Start Date 07/25/16 Start Time 22:02 End Date 07/26/16 Discontinued Medications Alprazolam (Xanax) 0.25 mg PO Q12 PRN; Protocol PRN Reason: Anxiety Stop: 08/01/16 10:01 Potassium Chloride (Potassium Chloride 10 Meq/100 Ml) 100 mls @ 100 mls/hr IVPB Q2H [facility] Stop: 07/25/16 12:29 Last Admin: 07/25/16 11:42 Dose: 100 MLS/HR eMAR Start Stop Document 07/25/16 11:42 JCL (Rec: 07/25/16 11:42 JCL [id number]) Intravenous Solution Start Date 07/25/16 Start Time 11:42 End Date 07/25/16 End time 12:45 Total Infusion Time 63 Potassium Chloride (Potassium Chloride Oral Soln) 40 meq PO ONCE ONE Stop: 07/25/16 09:25 Last Admin: 07/25/16 09:46 Dose: 40 MEQ - Scribe Statement The provider has reviewed the documentation as recorded by the Kleber Ovalle Provider Attestation: All medical record entries made by the Kleber were at my direction and personally dictated by me. I have reviewed the chart and agree that the record accurately reflects my personal performance of the history, physical exam, medical decision making, and the department course for this patient. I have also personally directed, reviewed, and agree with the discharge instructions and disposition. Disposition/Present on Arrival - Present on Arrival Any Indicators Present on Arrival: No History of DVT/PE: No History of Uncontrolled Diabetes: No Urinary Catheter: No History of Decub. Ulcer: No History Surgical Site Infection Following: None - Disposition Have Diagnosis and Disposition been Completed?: Yes Diagnosis: Third degree heart block, Syncope Disposition: HOSPITALIZED Disposition Time: 21:55 Patient Plan: Admission Condition: STABLE
[2016-07-24] MEDS ORDERED: DOBUTamine 500mg/250ml D5W 250 ML IV PRN (21:47)
[2016-07-24 22:13] LABS: ALB/GLOB RATIO 1.2 (1.1-1.8); ALKALINE PHOSPHATASE 63 U/L (38-133); ALT/SGPT 38 U/L (7-56); AST/SGOT 41 U/L (15-39); BILIRUBIN,TOTAL 0.6 mg/dL (0.2-1.3); BLOOD UREA NITROGEN 25 mg/dL (7-21); CALCIUM 9.6 mg/dL (8.4-10.5); CARBON DIOXIDE 21 mmol/L (21-33); CHLORIDE 104 mmol/L (98-107); GFR AFRICAN-AMERICAN > 60; GLUCOSE,RANDOM 170 mg/dL (70-110); SODIUM 139 mmol/L (132-148); TOTAL PROTEIN 7.7 g/dL (5.8-8.3)
[2016-07-24 22:14] LABS: HEMATOCRIT 38.3 % (36.0-48.0); MEAN CELL VOLUME 91.8 fL (80.0-105.0); MEAN CORPUSCULAR HEMOGLOBIN 32.1 pg (25.0-35.0); MEAN PLATELET VOLUME 10.1 fl (7.0-11.0); RED CELL DISTRIBUTION WIDTH 13.7 % (11.5-14.5); WHITE BLOOD COUNT 6.8 10^3/ul (4.5-11.0)
[2016-07-24 22:25] LABS: TROPONIN I < 0.01 ng/mL
[2016-07-24 22:29] LABS: INR 1.1 (0.93-1.08); PARTIAL THROMBOPLASTIN TIME 27.5 Seconds (23.7-30.8)
--- NOTE | 2016-07-24 22:38 | CP.PCM.CON ---
<Jennifer Lihgt - Last Filed: 07/24/16 22:51> History of Present Illness - History of Present Illness History of Present Illness: This is a 75Y F with PMH of HTN, CVA, bradycardia, HLD, breast cancer came to the ED for syncopal episode. She reports that she was sitting with her daughters at the dinner table. She said she was feeling well when all of a sudden, her daughter looked up and saw her close her eyes and become unresponsive for a few seconds. She did not fall or hit her head. The patient described it as everything went black and then she woke up. She denies having CP , SOB, vision changes, n/v/d, numbness/tingling or palpitations. She was recently d/c yesterday from [place] for palpitations. It was thought to be secondary to anxiety because the patient's is in the hospital as well. It was noted that the patient had a stress test in 05/2016 which was normal and also had a normal echo. She had a holter monitor in the past placed by Dr. Ziegler who reported that the patient has Mobitz type II heart block and may need a pacemaker in the future. PMH: HTN, CVA, bradycardia, HLD, breast cancer, anxiety PSH: L breast biopsy, L carotid endarterectomy Home meds: Please see MAR All: NKDA SH: Denies EtOH, drug or alcohol use. Lives with . FH: non-contributory PMD: Dr. Dunbar Review of Systems - Review of Systems Review of Systems: As per HPI Past Patient History - Infectious Disease Hx of Infectious Diseases: None - Tetanus Immunizations Tetanus Immunization: Unknown - Past Social History Smoking Status: Never Smoked Alcohol: None Drugs: Denies Home Situation {Lives}: With Family - CARDIAC Hx Cardiac Disorders: Yes (bradycardia) Hx Congestive Heart Failure: Yes Hx Hypertension: Yes - PULMONARY Hx Chronic Obstructive Pulmonary Disease (COPD): Yes - NEUROLOGICAL HX Cerebrovascular Accident: Yes - HEENT Hx HEENT Problems: Yes (pt. uses maegan.) - RENAL Hx Chronic Kidney Disease: No Hx Renal Failure: No - ENDOCRINE/METABOLIC Hx Endocrine Disorders: No Hx Diabetes Mellitus Type 1: No Hx Diabetes Mellitus Type 2: No Hx Hypothyroidism: No - HEMATOLOGICAL/ONCOLOGICAL Hx Blood Disorders: Yes Hx Cancer: Yes (BREAST LUMPECTOMY WITH RADIATION AND CHEMO COMPLETED) Hx Chemotherapy: Yes - INTEGUMENTARY Hx Dermatological Problems: No - MUSCULOSKELETAL/RHEUMATOLOGICAL Hx Musculoskeletal Disorders: No Hx Arthritis: No Hx Falls: No - GASTROINTESTINAL Hx Gastrointestinal Disorders: No Hx Gastroesophageal Reflux: No - GENITOURINARY/GYNECOLOGICAL Hx Genitourinary Disorders: Yes (BREAST LUMPECTOMY) - PSYCHIATRIC Hx Psychophysiologic Disorder: Yes Hx Anxiety: Yes Hx Depression: No Hx Emotional Abuse: No Hx Physical Abuse: No Hx Substance Use: No - SURGICAL HISTORY Hx Coronary Stent: Yes (stent to carotid artery) Hx Hysterectomy: Yes - ANESTHESIA Hx Anesthesia: Yes Hx Anesthesia Reactions: No Hx Malignant Hyperthermia: No Meds Allergies/Adverse Reactions: Allergies Allergy/AdvReac Type Severity Reaction Status Date / Time No Known Allergies Allergy Verified 07/24/16 21:24 - Medications Medications: Current Medications Alprazolam (Xanax) 0.25 mg PO Q12 PRN; Protocol PRN Reason: Anxiety Stop: 08/01/16 10:01 Aspirin (Aspirin Chewable) 1 mg PO DAILY [facility] Atorvastatin Calcium (Lipitor) 10 mg PO DIN [facility] Clopidogrel Bisulfate (Plavix) 1 mg PO DAILY [facility] Dobutamine HCl/Dextrose (Dobutamine/Dextrose 5% 500mg/250ml) 250 mls @ 4.525 mls/hr IV .Q24H PRN; Protocol; 2.5 MCG/KG/MIN PRN Reason: TITRATE PER PROTOCOL Last Admin: 07/24/16 22:03 Dose: 4.525 mls/hr Physical Exam - Constitutional Appears: No Acute Distress - Head Exam Head Exam: ATRAUMATIC, NORMAL INSPECTION, NORMOCEPHALIC - Eye Exam Eye Exam: EOMI, Normal appearance, PERRL Pupil Exam: NORMAL ACCOMODATION, PERRL - ENT Exam ENT Exam: Mucous Membranes Moist - Neck Exam Neck exam: Positive for: Normal Inspection - Respiratory Exam Respiratory Exam: Clear to Auscultation Bilateral, NORMAL BREATHING PATTERN. absent: Rales, Rhonchi, Wheezes, Respiratory Distress - Cardiovascular Exam Cardiovascular Exam: Bradycardia, REGULAR RHYTHM, +S1, +S2. absent: Gallop, Rubs, Systolic Murmur - GI/Abdominal Exam GI & Abdominal Exam: Normal Bowel Sounds, Soft. absent: Guarding, Rebound, Rigid, Tenderness - Neurological Exam Neurological exam: Alert, CN II-XII Intact, Oriented x3 - Psychiatric Exam Psychiatric exam: Normal Affect, Normal Mood - Skin Skin Exam: Dry, Intact, Normal Color, Warm Results - Vital Signs Recent Vital Signs: Last Vital Signs Temp 98 F 07/24/16 21:21 Pulse 44 L 07/24/16 21:21 Resp 18 07/24/16 21:21 BP 135/52 L 07/24/16 21:21 Pulse Ox 98 07/24/16 21:21 - Labs Result Diagrams: 07/24/16 21:39 07/24/16 21:39 - EKG Data EKG Interpreted by: ER Physician Rate: Bradycardia Assessment & Plan - Assessment and Plan (Free Text) Assessment: This is a 75Y F with PMH HTN, CVA, bradycardia, HLD, breast cancer admitted for bradycardia and 3rd degree heart block. Plan: Neuro: A&O x 3 Maintain normothermia Continue to monitor Pulm: Maintain SpO2>90% SpO2 is normal on room air CV: EKG showed 3rd degree heart block External pacing and defibrillator in place Continue Dobutamine drip Dr. Damon (Cardiology) Consulted Stop Metoprolol Hold BP meds Hydralazine PRN SBP>180 Continue ASA, Plavix GI: NPO NS@100 Pepcid BID Renal: Continue to monitor electrolytes Will replace as needed Heme: Hgb Stable Continue to monitor CBC ID: Afebrile, no leukocytosis Endo: Maintain Euglycemia Psych: Xanax q12 prn anxiety GI ppx: Pepcid DVT ppx: SCDs Case seen, reviewed and discussed with attending Ady Light PGY1 - Date & Time Date: 07/24/16 Time: 22:45 <Vishal Aly Q - Last Filed: 07/24/16 23:12> Meds - Medications Medications: Current Medications Alprazolam (Xanax) 0.25 mg PO Q12 PRN; Protocol PRN Reason: Anxiety Stop: 08/01/16 10:01 Aspirin (Aspirin Chewable) 81 mg PO DAILY [facility] Atorvastatin Calcium (Lipitor) 10 mg PO DIN [facility] Clopidogrel Bisulfate (Plavix) 75 mg PO DAILY [facility] Famotidine (Pepcid) 20 mg PO BID [facility] Hydralazine HCl (Apresoline) 10 mg IVP Q6 PRN PRN Reason: Systolic Blood Pressure Dobutamine HCl/Dextrose (Dobutamine/Dextrose 5% 500mg/250ml) 250 mls @ 4.525 mls/hr IV .Q24H PRN; Protocol; 2.5 MCG/KG/MIN PRN Reason: TITRATE PER PROTOCOL Last Admin: 07/24/16 22:03 Dose: 4.525 mls/hr Sodium Chloride (Sodium Chloride 0.9%) 1,000 mls @ 100 mls/hr IV .Q10H [facility] Last Admin: 07/24/16 22:41 Dose: 100 mls/hr Results - Vital Signs Recent Vital Signs: Last Vital Signs Temp 98 F 07/24/16 21:21 Pulse 100 H 07/24/16 22:57 Resp 16 07/24/16 22:57 BP 124/54 L 07/24/16 22:57 Pulse Ox 97 07/24/16 22:57 - Labs Result Diagrams: 07/24/16 21:39 07/24/16 21:39 Attending/Attestation - Attestation I have personally seen and examined this patient.: Yes I have fully participated in the care of the patient.: Yes I have reviewed all pertinent clinical information: Yes Notes (Text): 07/24/16 23:08 I agree with the above mentioned note and exam by Dr. Light with the addition /exception of the followin75 y/o female with Htn, CVA s/p L CEA, who was recently admitted to the hospital for palpitations and near syncope. Apparently the patient was kept on a environmental monitoring technician during her stay and did not show a significant heart block or arrythmia to warrant further workup and was discharged home. When eating with her daughter today she was reported to have a "staring spell" where her eyes were open but she was not responding. She subsequently improved, however a nurse at the restaurant was present who checked her pulse, found that it was low and recommended she come to the ED. In the ED she is shown to have 3rd degree heart block however is not symptomatic at this time; will maintain her on a dobutamine drip, external pacer pads and watch her overnight in the ICU. Case discussed with Dr. Copeland in the ED all labs and images available thus far have been reviewed personally. total time of care: 35 minutes
[2016-07-24] MEDS: Sodium Chloride 0.9% 1,000 ML IV SCH (22:41)
[2016-07-25] MEDS ORDERED: Apap-Butalbital-Caffeine 325-50-40mg Tab PO PRN (01:46)
[2016-07-25 06:34] LABS: ADD MANUAL DIFF? NO
[2016-07-25 06:39] LABS: BASO # 0.02 K/mm3 (0.0-2.0); BASO % 0.3 % (0.0-3.0); EOS # 0.1 (0.0-0.7); EOS % 1.9 % (1.5-5.0); GRAN # 3.32 (1.4-6.5); GRAN % 57.2 % (50.0-68.0); HEMATOCRIT 35.9 % (36.0-48.0); LYMPH # 1.9 (1.2-3.4); LYMPH % 32.9 % (22.0-35.0); MEAN CELL VOLUME 91.6 fL (80.0-105.0); MEAN CORPUSCULAR HEMOGLOBIN 31.4 pg (25.0-35.0); MEAN CORPUSCULAR HGB CONC 34.3 g/dl (31.0-37.0); MEAN PLATELET VOLUME 9.9 fl (7.0-11.0); MONO # 0.5 (0.1-0.6); MONO % 7.7 % (1.0-6.0); PLATELET COUNT 210 10^3/uL (120.0-450.0); RED CELL DISTRIBUTION WIDTH 13.8 % (11.5-14.5); WHITE BLOOD COUNT 5.8 10^3/ul (4.5-11.0)
[2016-07-25 06:52] LABS: ALB/GLOB RATIO 1.2 (1.1-1.8); ALKALINE PHOSPHATASE 53 U/L (38-133); ALT/SGPT 42 U/L (7-56); AST/SGOT 31 U/L (15-39); BILIRUBIN,TOTAL 0.3 mg/dL (0.2-1.3); BLOOD UREA NITROGEN 21 mg/dL (7-21); CALCIUM 9.2 mg/dL (8.4-10.5); CARBON DIOXIDE 24 mmol/L (21-33); CHLORIDE 106 mmol/L (98-107); GFR AFRICAN-AMERICAN > 60; GLUCOSE,RANDOM 81 mg/dL (70-110); MAGNESIUM 1.8 mg/dL (1.7-2.2); PHOSPHOROUS 4.2 mg/dL (2.5-4.5); POTASSIUM 3.5 mmol/L (3.6-5.0); SODIUM 142 mmol/L (132-148); TOTAL PROTEIN 6.9 g/dL (5.8-8.3)
--- NOTE | 2016-07-25 09:01 | RAD ---
HISTORY: bradycardia COMPARISON: 07/21/2016 FINDINGS: LUNGS: No active pulmonary disease. PLEURA: No significant pleural effusion identified, no pneumothorax apparent. CARDIOVASCULAR: Probable minimal left ventricular enlargement. Aortic knob atherosclerotic vascular calcification OSSEOUS STRUCTURES: Thoracic spondylosis VISUALIZED UPPER ABDOMEN: Normal. OTHER FINDINGS: Asymmetry of breast tissues with left lateral chest wall/left axilla surgical sutures -findings consistent with likely left breast cancer lumpectomy and treatment for it IMPRESSION: No active disease. No interval pathology noted
[2016-07-25] MEDS ORDERED: Potassium Chloride 40 mEq/30 ml LIQ UD PO ONE (09:24)
[2016-07-25] MEDS: Potassium Chloride 10 mEq 100 ML IVPB SCH ×2 (09:46→11:42)
--- NOTE | 2016-07-25 10:47 | CON ---
DATE: 07/25/2016 CARDIOLOGY CONSULTATION HISTORY: The patient is a 75-year-old woman who presented with syncope associated with a documented third-degree heart block. PAST MEDICAL HISTORY: Has had recurrent dizzy spells and palpitations in the past. Extensive workup including a stress test shows good LV function with no ischemic changes. A Holter monitor showed no heart block. However, she did have bradycardia. Her past medical history includes hypercholesterolemia and hypertension. No previous myocardial infa rction nor coronary disease in the past. The patient's past medical history is notable for status post carotid stenting in which a recent eval uation showed a patent right carotid stent. SOCIAL HISTORY: The patient does not smoke. REVIEW OF SYSTEMS: Reviewed in detail. Other than what was described above, no other cardiac sympto matology is noted. No medications can explain her bradycardia and heart block. PHYSICAL EXAMINATION: VITAL SIGNS: Blood pressure is 146/58. The patient is afebrile. Heart rate currently is in the 70s on low-dose dobutamine. NECK: Negative JVD. LUNGS: Without rales. HEART: With S2. EXTREMITIES: Without edema. EKG shows complete heart block, as well as another EKG that shows prolonged [place] interval, as well as p eriods of a bundle-branch block. LABORATORIES: Hemoglobin is 12.3. Chemistries: BUN and creatinine are 21 and 0.7 with a potassium of 3.5. Troponins are negative x 2. IMPRESSION: 1. Recurrent syncope. 2. Documented third-degree heart block. 3. History of peripheral vascular disease with a carotid stent. 4. History of hypertension without medication that can explain her arteriovenous block. 5. Hypercholesterolemia. Given these findings, I agree with low-dose dobutamine to maintain heart rate. I have discussed with the patient about the need for a pacemaker. Risk and benefits were discussed with the patient in de tail. The patient is agreeable. We will arrange for a permanent pacemaker with Dr. Ziegler. Ovi Damon MD cc: [id number] TT: 07/25/2016 10:47:24 Confirmation # [id number] Dictation # [id number] riya
--- NOTE | 2016-07-25 13:16 | CP.CCUPN ---
<Bong Larry - Last Filed: 07/25/16 13:13> CCU Subjective - Physician Review Subjective (Free Text): 07/25/16 13:13 Patient seen and examined at bedside in the ICU. Today is hospital day 2. No acute events overnight since admission. She has returned to normal sinus rhythm on the dobutamine drip. Denies chest pain, shortness of breath, further syncopal/pre-syncopal episodes, or nausea/emesis, but does admit to intermittent dizziness and some anxiety. CCU Objective - Vital Signs / Intake & Output Vital Signs (Last 4 hours): Vital Signs Temp Pulse Resp BP Pulse Ox 07/25/16 11:38 98.2 F 07/25/16 11:00 75 20 136/69 96 07/25/16 10:31 71 20 97 07/25/16 10:00 83 19 165/75 H 99 Intake and Output (Last 8hrs): Intake & Output 07/24/16 07/25/16 07/25/16 22:59 06:59 14:59 Intake Total 975 Output Total 500 Balance 475 Weight 64.41 kg Intake: IV 735 right arm 735 Oral 240 Output: Urine 500 Urine, Voided 500 Stool 0 Other: Voiding Method Bedpan # Bowel Movements 0 - Physical Exam Head: Positive for: Atraumatic, Normocephalic Extroacular Muscles: Positive for: EOMI. Negative for: Gaze Palsy, Entrapment Conjunctiva: Positive for: Normal. Negative for: Injected, Icteric Mouth: Positive for: Moist Mucous Membranes, Normal Tounge, Normal Teeth. Negative for: Dry Nose (External): Positive for: Atraumatic. Negative for: Abrasion, Contusion, Laceration Neck: Positive for: Normal Range of Motion, Trachea Midline. Negative for: JVD Respiratory/Chest: Positive for: Clear to Auscultation, Good Air Exchange. Negative for: Respiratory Distress, Accessory Muscle Use, Wheezes, Decreased Breath Sounds, Rales, Retracting, Rhonchi, Tachypneic, Tender to Palpation Cardiovascular: Positive for: Regular Rate and Rhythm, Normal S1, S2, Peripheal Pulses Present. Negative for: Murmurs, Irregular Rhythm, Tachycardic, Bradycardic Abdomen: Positive for: Normal Bowel Sounds. Negative for: Tenderness, Distention, Peritoneal Signs, Guarding, Mass/Organomegaly Upper Extremity: Positive for: Normal Inspection, Normal ROM, NORMAL PULSES. Negative for: Cyanosis, Edema, Tenderness, Swelling, Erythema Lower Extremity: Positive for: Normal Inspection, NORMAL PULSES, Normal ROM. Negative for: Edema, CALF TENDERNESS, Cyanosis, Tenderness, Swelling, Erythema Neurological: Positive for: GCS=15, CN II-XII Intact, Speech Normal, Motor Func Grossly Intact Skin: Positive for: Warm, Dry, Normal Color. Negative for: Rashes, Laceration Psychiatric: Positive for: Alert, Oriented x 3, Normal Insight, Normal Concentration, Normal Affect, Normal Mood - Medications Active Medications: Active Medications Generic Name Dose Route Start Last Admin Trade Name Freq PRN Reason Stop Dose Admin Acetaminophen/Butalbital/Caffeine 1 tab 07/25/16 01:46 07/25/16 01:59 Fioricet PO 1 tab Q4H PRN Administration Headache Alprazolam 0.25 mg 07/24/16 22:27 Xanax PO 08/01/16 10:01 Q12 PRN Anxiety Protocol Aspirin 81 mg 07/25/16 10:00 07/25/16 09:19 Aspirin Chewable PO 81 mg DAILY KELLEE Administration Atorvastatin Calcium 10 mg 07/25/16 17:00 Lipitor PO DIN KELLEE Clopidogrel Bisulfate 75 mg 07/25/16 10:00 07/25/16 09:19 Plavix PO 75 mg DAILY KELLEE Administration Famotidine 20 mg 07/25/16 10:00 07/25/16 09:19 Pepcid PO 20 mg BID KELLEE Administration Hydralazine HCl 10 mg 07/24/16 22:30 Apresoline IVP Q6 PRN Systolic Blood Pressure Dobutamine HCl/Dextrose 250 mls @ 4.525 mls/hr 07/24/16 21:47 07/24/16 22:03 Dobutamine/Dextrose 5% 500mg/250ml IV 4.525 mls/hr .Q24H PRN Administration TITRATE PER PROTOCOL Protocol 2.5 MCG/KG/MIN Sodium Chloride 1,000 mls @ 100 mls/hr 07/24/16 22:30 07/24/16 22:41 Sodium Chloride 0.9% IV 100 mls/hr .Q10H KELLEE Administration - Patient Studies Lab Studies: Lab Studies 07/25/16 07/25/16 Range/Units 13:00 06:10 WBC 5.8 (4.5-11.0) 10^3/ul RBC 3.92 (3.5-6.1) 10^6/uL Hgb 12.3 (12.0-16.0) gm/dL Hct 35.9 L (36.0-48.0) % MCV 91.6 (80.0-105.0) fL MCH 31.4 (25.0-35.0) pg MCHC 34.3 (31.0-37.0) g/dl RDW 13.8 (11.5-14.5) % Plt Count 210 (120.0-450.0) 10^3/uL MPV 9.9 (7.0-11.0) fl Gran % 57.2 (50.0-68.0) % Lymph % (Auto) 32.9 (22.0-35.0) % [place] % (Auto) 7.7 H (1.0-6.0) % Eos % (Auto) 1.9 (1.5-5.0) % Baso % (Auto) 0.3 (0.0-3.0) % Gran # 3.32 (1.4-6.5) Lymph # 1.9 (1.2-3.4) [place] # 0.5 (0.1-0.6) Eos # 0.1 (0.0-0.7) Baso # 0.02 (0.0-2.0) K/mm3 Sodium 142 (132-148) mmol/L Potassium 5.0 3.5 L (3.6-5.0) mmol/L Chloride 106 (98-107) mmol/L Carbon Dioxide 24 (21-33) mmol/L Anion Gap 16 (10-20) BUN 21 (7-21) mg/dL Creatinine 0.7 (0.5-1.4) mg/dL Est GFR ( Amer) > 60 Est GFR (Non-Af Amer) > 60 Random Glucose 81 (70-110) mg/dL Calcium 9.2 (8.4-10.5) mg/dL Phosphorus 4.2 (2.5-4.5) mg/dL Magnesium 1.8 (1.7-2.2) mg/dL Total Bilirubin 0.3 (0.2-1.3) mg/dL AST 31 (15-39) U/L ALT 42 (7-56) U/L Alkaline Phosphatase 53 (38-133) U/L Total Protein 6.9 (5.8-8.3) g/dL Albumin 3.7 (3.0-4.8) g/dL Globulin 3.2 gm/dL Albumin/Globulin Ratio 1.2 (1.1-1.8) Laboratory Results - last 24 hr 07/25/16 07/25/16 06:10 13:00 WBC 5.8 RBC 3.92 Hgb 12.3 Hct 35.9 L MCV 91.6 MCH 31.4 MCHC 34.3 RDW 13.8 Plt Count 210 MPV 9.9 Gran % 57.2 Lymph % (Auto) 32.9 [place] % (Auto) 7.7 H Eos % (Auto) 1.9 Baso % (Auto) 0.3 Gran # 3.32 Lymph # 1.9 [place] # 0.5 Eos # 0.1 Baso # 0.02 Sodium 142 Potassium 3.5 L 5.0 Chloride 106 Carbon Dioxide 24 Anion Gap 16 BUN 21 Creatinine 0.7 Est GFR ( Amer) > 60 Est GFR (Non-Af Amer) > 60 Random Glucose 81 Calcium 9.2 Phosphorus 4.2 Magnesium 1.8 Total Bilirubin 0.3 AST 31 ALT 42 Alkaline Phosphatase 53 Total Protein 6.9 Albumin 3.7 Globulin 3.2 Albumin/Globulin Ratio 1.2 EKG/Cardiology Studies: Cardiology / EKG Studies 07/25/16 11:32 EKG [ELECTROCARDIOGRAM] Stat Comment: Reason For Exam: heart block 3rd degree Review of Systems - Constitutional Constitutional: absent: Fever, Chills - EENT Eyes: absent: Change in Vision, Loss of Vision Ears: Dizziness (intermittent, not present at time of exam) Nose/Mouth/Throat: absent: Sore Throat, Neck Pain - Cardiovascular Cardiovascular: Palpitations, Syncope (at diner prior to presentation to hospital, not further episodes). absent: Chest Pain, Dyspnea, Pain Radiating to Arm/Neck/Jaw, Lightheadedness - Respiratory Respiratory: absent: Cough, Dyspnea, Hemoptysis, Wheezing - Gastrointestinal Gastrointestinal: absent: Abdominal Pain, Constipation, Diarrhea, Nausea, Vomiting - Genitourinary Genitourinary: absent: Difficulty Urinating, Dysuria, Flank Pain, Hematuria - Musculoskeletal Musculoskeletal: absent: Neck Pain, Numbness, Radiating Pain into Limb - Integumentary Integumentary: absent: Pruritus, Rash - Neurological Neurological: Dizziness (intermittent, none present at time of exam), Syncope ( one episode at diner prior to presentation, no further episodes). absent: Loss of Vision, Sensory Deficit, Weakness, Other Visual Disturbances - Psychiatric Psychiatric: Anxiety - Endocrine Endocrine: Palpitations. absent: Fatigue Critical Care Progress Note - Nutrition Nutrition: Nutrition Category Date Time Status Heart Healthy Diet [DIET] Diets 07/25/16 Lunch Ordered Assessment/Plan - Assessment and Plan (Free Text) Assessment: This is a 75 yo F with PMH of HTN, CVA, bradycardia, HLD, and breast cancer admitted for 3rd degree heart block causing bradycardia and syncopal episode. She is pending pacemaker placement as per Cardio. Plan: Neuro: -syncopal episode for several seconds prior to admission, no loss of memory, no falls, no trauma, no seizure-like activity, no recurrence -awake and alert, oriented x3 -moving all extremities spontaneously, follows all commands appropriately -maintain normothermia Pulm: -CTAB on exam -Satting > 90% on room air, no indication for supplemental O2 at this time -maintain SaO2 > 90%, paO2 > 60 Cardio: -EKG on arrival notable for complete heart block (3rd degree) -Per charting and patient, 1 episode of Mobitz II heart block noted when previously on holter monitor, no intervention required at that time (Holter done by Dr. Ziegler) -Cardio (Dr. Damon) consulted, appreciate all recs; continue dobutamine drip for now, pending pacer placement tomorrow -Repeat EKG this AM notable for NSR at 77, prolonged QTc of 466, MT of 198, right bundle branch block -Continue dobutamine drip as per Cardio, pacer pads in place in case patient requires transcutaneous pacing -Cont ASA, Plavix, Lipitor -PRN hydralazine for SBP > 180 -NS IVF 100cc/hr -Maintain MAP > 65 GI: -Heart healthy diet -Pepcid for GI ppx Renal: -maintain euvolemia and euglycemia -Cr 0.7 -avoid nephrotoxic drugs as feasible -monitor and replete electrolytes as needed; K low at 3.5, repleted, 5.0 on recheck Heme/ID: -no leukocytosis, afebrile -Hgb stable at 12.3 -continue to monitor Psych: -anxiety hx, continue Xanax 0.25 Dispo: ICU, pending cardiac pacemaker placement tomorrow as per Cardio FEN: Heart-healthy diet, NS IVF 100cc/hr Access: Peripheral IVs Consult: Cardio Ppx: Pepcid for GI, SCDs for DVT Patient seen, reviewed, and discussed with attending, Dr. Carrillo. - Date & Time Date: 07/25/16 Time: 13:44 <Gerardo TATUM,Inamul H - Last Filed: 07/25/16 15:19> CCU Objective - Vital Signs / Intake & Output Vital Signs (Last 4 hours): Vital Signs Temp Pulse Resp BP Pulse Ox 07/25/16 14:00 74 21 142/60 95 07/25/16 13:00 86 19 173/73 H 97 07/25/16 12:00 74 39 H 166/115 H 97 07/25/16 11:42 87 97 07/25/16 11:38 98.2 F Intake and Output (Last 8hrs): Intake & Output 07/25/16 07/25/16 07/25/16 06:59 14:59 22:59 Intake Total 975 Output Total 500 Balance 475 Weight 142 lb Intake: IV 735 right arm 735 Oral 240 Output: Urine 500 Urine, Voided 500 Stool 0 Other: Voiding Method Bedpan # Bowel Movements 0 - Medications Active Medications: Active Medications Generic Name Dose Route Start Last Admin Trade Name Freq PRN Reason Stop Dose Admin Acetaminophen/Butalbital/Caffeine 1 tab 07/25/16 01:46 07/25/16 01:59 Fioricet PO 1 tab Q4H PRN Administration Headache Alprazolam 0.25 mg 07/24/16 22:27 Xanax PO 08/01/16 10:01 Q12 PRN Anxiety Protocol Aspirin 81 mg 07/25/16 10:00 07/25/16 09:19 Aspirin Chewable PO 81 mg DAILY KELLEE Administration Atorvastatin Calcium 10 mg 07/25/16 17:00 Lipitor PO DIN KELLEE Clopidogrel Bisulfate 75 mg 07/25/16 10:00 07/25/16 09:19 Plavix PO 75 mg DAILY KELLEE Administration Famotidine 20 mg 07/25/16 10:00 07/25/16 09:19 Pepcid PO 20 mg BID KELLEE Administration Hydralazine HCl 10 mg 07/24/16 22:30 Apresoline IVP Q6 PRN Systolic Blood Pressure Dobutamine HCl/Dextrose 250 mls @ 4.525 mls/hr 07/24/16 21:47 07/24/16 22:03 Dobutamine/Dextrose 5% 500mg/250ml IV 4.525 mls/hr .Q24H PRN Administration TITRATE PER PROTOCOL Protocol 2.5 MCG/KG/MIN Sodium Chloride 1,000 mls @ 100 mls/hr 07/24/16 22:30 07/24/16 22:41 Sodium Chloride 0.9% IV 100 mls/hr .Q10H KELLEE Administration - Patient Studies Lab Studies: Lab Studies 07/25/16 07/25/16 Range/Units 13:00 06:10 WBC 5.8 (4.5-11.0) 10^3/ul RBC 3.92 (3.5-6.1) 10^6/uL Hgb 12.3 (12.0-16.0) gm/dL Hct 35.9 L (36.0-48.0) % MCV 91.6 (80.0-105.0) fL MCH 31.4 (25.0-35.0) pg MCHC 34.3 (31.0-37.0) g/dl RDW 13.8 (11.5-14.5) % Plt Count 210 (120.0-450.0) 10^3/uL MPV 9.9 (7.0-11.0) fl Gran % 57.2 (50.0-68.0) % Lymph % (Auto) 32.9 (22.0-35.0) % [place] % (Auto) 7.7 H (1.0-6.0) % Eos % (Auto) 1.9 (1.5-5.0) % Baso % (Auto) 0.3 (0.0-3.0) % Gran # 3.32 (1.4-6.5) Lymph # 1.9 (1.2-3.4) [place] # 0.5 (0.1-0.6) Eos # 0.1 (0.0-0.7) Baso # 0.02 (0.0-2.0) K/mm3 Sodium 142 (132-148) mmol/L Potassium 5.0 3.5 L (3.6-5.0) mmol/L Chloride 106 (98-107) mmol/L Carbon Dioxide 24 (21-33) mmol/L Anion Gap 16 (10-20) BUN 21 (7-21) mg/dL Creatinine 0.7 (0.5-1.4) mg/dL Est GFR ( Amer) > 60 Est GFR (Non-Af Amer) > 60 Random Glucose 81 (70-110) mg/dL Calcium 9.2 (8.4-10.5) mg/dL Phosphorus 4.2 (2.5-4.5) mg/dL Magnesium 1.8 (1.7-2.2) mg/dL Total Bilirubin 0.3 (0.2-1.3) mg/dL AST 31 (15-39) U/L ALT 42 (7-56) U/L Alkaline Phosphatase 53 (38-133) U/L Total Protein 6.9 (5.8-8.3) g/dL Albumin 3.7 (3.0-4.8) g/dL Globulin 3.2 gm/dL Albumin/Globulin Ratio 1.2 (1.1-1.8) Laboratory Results - last 24 hr 07/25/16 07/25/16 06:10 13:00 WBC 5.8 RBC 3.92 Hgb 12.3 Hct 35.9 L MCV 91.6 MCH 31.4 MCHC 34.3 RDW 13.8 Plt Count 210 MPV 9.9 Gran % 57.2 Lymph % (Auto) 32.9 [place] % (Auto) 7.7 H Eos % (Auto) 1.9 Baso % (Auto) 0.3 Gran # 3.32 Lymph # 1.9 [place] # 0.5 Eos # 0.1 Baso # 0.02 Sodium 142 Potassium 3.5 L 5.0 Chloride 106 Carbon Dioxide 24 Anion Gap 16 BUN 21 Creatinine 0.7 Est GFR ( Amer) > 60 Est GFR (Non-Af Amer) > 60 Random Glucose 81 Calcium 9.2 Phosphorus 4.2 Magnesium 1.8 Total Bilirubin 0.3 AST 31 ALT 42 Alkaline Phosphatase 53 Total Protein 6.9 Albumin 3.7 Globulin 3.2 Albumin/Globulin Ratio 1.2 EKG/Cardiology Studies: Cardiology / EKG Studies 07/25/16 11:32 EKG [ELECTROCARDIOGRAM] Stat Comment: Reason For Exam: heart block 3rd degree Critical Care Progress Note - Nutrition Nutrition: Nutrition Category Date Time Status Heart Healthy Diet [DIET] Diets 07/25/16 Lunch Ordered Attending/Attestation - Attestation I have personally seen and examined this patient.: Yes I have fully participated in the care of the patient.: Yes I have reviewed all pertinent clinical information: Yes Notes (Text): 07/25/16 15:17 75 y/o F admitted to the ICu for complete heart block and pre syncopal episode On dobutamine overnight per Cardiology request. No temp pacer placed This a.m hr >70 NSR. No further symptoms. No other new risk factors noted, all B-blockers and ca blockers stopped. Plan per cardiology to place PM . Hep sq tid cc time 55 min
--- NOTE | 2016-07-25 17:49 | CARD ---
APPROVED REPORT EKG Measurement Heart [id number] <Conclusion> Normal sinus rhythm Right bundle branch block Abnormal ECG
--- NOTE | 2016-07-25 18:05 | CARD ---
APPROVED REPORT EKG Measurement Heart [id number] <Conclusion> sinus tachycardia with AV dissociation and Wide QRS rhythm Right bundle branch block Abnormal ECG
[2016-07-25] MEDS: Sodium Chloride 0.9% 1,000 ML IV SCH (22:02)
--- NOTE | 2016-07-25 22:59 | HP ---
The patient is 75 years old, who was just discharged day before yesterday after she had episode of ne ar-syncope. The patient stated when she went home the next day, they went for shopping (that is yest erday). She stated she ordered some salad and she was eating beets, and her daughter noticed that he r head was going down and down until she touched the salad and beets stained her lips. Because of he r feeling sleepy and she almost passed out, and the color of beets gave her daughter impression as if she is bleeding, she panicked, she called ambulance and she was brought to Emergency Room. In the Emergency Room initial workup showed that she had a 3rd-degree heart block, so she was admitte d in ICU for close observation, and has external pacemaker placed. The patient has multiple admissio ns with similar presentation, and even had Holter placed as outpatient; did not show any heart block. However on this admission upon her arrival in ER she was found to be in 3rd-degree heart block. Bassam t was reported by ER physician, however, EKG read by ___ on 07/24 shows sinus tachycardia with AV dissociation and right QRS complexes, and a right bundle branch block. She has significant past medical history of: 1. Hypertension. 2. Hyperlipidemia. 3. History of CA breast. Surgical history is significant for carotid endarterectomy and left breast lumpectomy. ALLERGIES: She is not allergic to any medications. MEDICATIONS AT HOME: She is on aspirin 81 daily. She used to be on Bystolic; that was discontinued. Xanax 0.25 twice a day, Plavix 75 daily, hydrochlorothiazide 25 mg daily. SOCIAL HISTORY: She lives with her . She has a daughter around her. Denies alcohol or smoki ng. REVIEW OF SYSTEMS: Significant for generalized weakness, feeling tired, fatigued. On examination she is awake and alert, communicative. VITAL SIGNS: She is afebrile, pulse 86, respirations 19, blood pressure 173/73. LUNGS: Bilateral good airflow. No rhonchi or crackle. HEART: S1, S2 audible. ABDOMEN: Soft, nontender, no rebound, no guarding. NEUROLOGICALLY: She is awake and alert, communicative. Moves all extremities. ASSESSMENT: 1. Symptomatic bradycardia. 2. Near-syncope. 3. Hyperlipidemia. 4. History of carotid endarterectomy. PLAN: The patient is currently on dobutamine. Will give her anxiolytic. She is scheduled to have p acemaker placed tomorrow. She will remain on statin. She is on Plavix. Will follow up her mattie land in a.m. Pranay Dunbar MD cc: [id number] TT: 07/25/2016 22:59:00 jn
[2016-07-26 05:52] LABS: ADD MANUAL DIFF? NO
[2016-07-26 05:57] LABS: BASO # 0.02 K/mm3 (0.0-2.0); BASO % 0.4 % (0.0-3.0); EOS # 0.1 (0.0-0.7); EOS % 2.6 % (1.5-5.0); GRAN # 3.04 (1.4-6.5); GRAN % 60.9 % (50.0-68.0); HEMATOCRIT 35.2 % (36.0-48.0); LYMPH # 1.5 (1.2-3.4); LYMPH % 30.7 % (22.0-35.0); MEAN CELL VOLUME 92.1 fL (80.0-105.0); MEAN CORPUSCULAR HEMOGLOBIN 31.4 pg (25.0-35.0); MEAN CORPUSCULAR HGB CONC 34.1 g/dl (31.0-37.0); MEAN PLATELET VOLUME 9.8 fl (7.0-11.0); MONO # 0.3 (0.1-0.6); MONO % 5.4 % (1.0-6.0); PLATELET COUNT 217 10^3/uL (120.0-450.0); RED CELL DISTRIBUTION WIDTH 13.7 % (11.5-14.5)
[2016-07-26 06:06] LABS: INR 0.99 (0.93-1.08); PARTIAL THROMBOPLASTIN TIME 25.2 Seconds (23.7-30.8)
[2016-07-26 06:45] LABS: ALB/GLOB RATIO 1.1 (1.1-1.8); ALKALINE PHOSPHATASE 53 U/L (38-133); ALT/SGPT 39 U/L (7-56); AST/SGOT 27 U/L (15-39); BILIRUBIN,TOTAL 0.5 mg/dL (0.2-1.3); BLOOD UREA NITROGEN 14 mg/dL (7-21); CALCIUM 9.1 mg/dL (8.4-10.5); CARBON DIOXIDE 23 mmol/L (21-33); CHLORIDE 108 mmol/L (98-107); GFR AFRICAN-AMERICAN > 60; GLUCOSE,RANDOM 85 mg/dL (70-110); MAGNESIUM 1.8 mg/dL (1.7-2.2); PHOSPHOROUS 3.8 mg/dL (2.5-4.5); POTASSIUM 3.8 mmol/L (3.6-5.0); SODIUM 142 mmol/L (132-148); TOTAL PROTEIN 6.7 g/dL (5.8-8.3)
--- NOTE | 2016-07-26 07:33 | CP.CCUPN ---
<Bong Larry - Last Filed: 07/26/16 13:44> CCU Subjective - Physician Review Subjective (Free Text): 07/26/16 07:30 Patient seen and examined at bedside in the ICU. Today is hospital day 3. No acute events overnight. Remains NSR on nuclear monitoring technician. Denies chest pain, shortness of breath, further syncopal/pre-syncopal episodes, or nausea/emesis. She is scheduled to undergo cardiac pacer placement today. CCU Objective - Vital Signs / Intake & Output Vital Signs (Last 4 hours): Vital Signs Temp Pulse Resp BP Pulse Ox 07/26/16 06:00 70 17 164/69 H 95 07/26/16 05:00 76 17 168/63 H 93 L 07/26/16 04:29 63 14 96 07/26/16 04:00 97.8 F 62 17 157/58 H 97 07/26/16 03:42 66 17 95 Intake and Output (Last 8hrs): Intake & Output 07/25/16 07/26/16 07/26/16 22:59 06:59 14:59 Intake Total 1660 2769 Output Total 600 725 Balance 1060 2044 Intake: IV 2709 Right Forearm 2709 Oral 400 60 Other 1260 Output: Urine 600 725 Urine, Voided 600 725 Stool 0 Other: Voiding Method Bedpan - Physical Exam Head: Positive for: Atraumatic, Normocephalic Extroacular Muscles: Positive for: EOMI. Negative for: Gaze Palsy, Entrapment Conjunctiva: Positive for: Normal. Negative for: Injected, Icteric Mouth: Positive for: Moist Mucous Membranes, Normal Tounge, Normal Teeth. Negative for: Dry, Drooling Nose (External): Positive for: Atraumatic. Negative for: Abrasion, Contusion, Laceration Neck: Positive for: Normal Range of Motion, Trachea Midline. Negative for: JVD Respiratory/Chest: Positive for: Clear to Auscultation, Good Air Exchange. Negative for: Respiratory Distress, Accessory Muscle Use, Wheezes, Rales, Rhonchi Cardiovascular: Positive for: Normal S1, S2, Bradycardic (slow rate, regular rhythm). Negative for: Regular Rate and Rhythm, Murmurs Abdomen: Positive for: Normal Bowel Sounds. Negative for: Tenderness, Distention, Peritoneal Signs, Guarding, Mass/Organomegaly Upper Extremity: Positive for: Normal Inspection, Normal ROM, NORMAL PULSES. Negative for: Cyanosis, Edema, Tenderness, Swelling, Erythema Lower Extremity: Positive for: Normal Inspection, NORMAL PULSES, Normal ROM. Negative for: Edema, Cyanosis, Tenderness, Swelling, Erythema Neurological: Positive for: GCS=15, CN II-XII Intact, Speech Normal, Motor Func Grossly Intact Skin: Positive for: Warm, Dry, Normal Color. Negative for: Rashes, Laceration Psychiatric: Positive for: Alert, Oriented x 3, Normal Insight, Normal Concentration, Normal Affect, Anxious (some anxiety regarding her heart block and causes of it) - Medications Active Medications: Active Medications Generic Name Dose Route Start Last Admin Trade Name Freq PRN Reason Stop Dose Admin Acetaminophen/Butalbital/Caffeine 1 tab 07/25/16 01:46 07/25/16 01:59 Fioricet PO 1 tab Q4H PRN Administration Headache Alprazolam 0.25 mg 07/25/16 22:00 07/25/16 21:17 Xanax PO 08/01/16 22:01 0.25 mg Q12 KELLEE Administration Protocol Aspirin 81 mg 07/25/16 10:00 07/25/16 09:19 Aspirin Chewable PO 81 mg DAILY KELLEE Administration Atorvastatin Calcium 10 mg 07/25/16 17:00 07/25/16 17:00 Lipitor PO 10 mg DIN KELLEE Administration Clopidogrel Bisulfate 75 mg 07/25/16 10:00 07/25/16 09:19 Plavix PO 75 mg DAILY KELLEE Administration Famotidine 20 mg 07/25/16 10:00 07/25/16 17:00 Pepcid PO 20 mg BID KELELE Administration Hydralazine HCl 10 mg 07/24/16 22:30 Apresoline IVP Q6 PRN Systolic Blood Pressure Dobutamine HCl/Dextrose 250 mls @ 4.525 mls/hr 07/24/16 21:47 07/24/16 22:03 Dobutamine/Dextrose 5% 500mg/250ml IV 4.525 mls/hr .Q24H PRN Administration TITRATE PER PROTOCOL Protocol 2.5 MCG/KG/MIN Sodium Chloride 1,000 mls @ 100 mls/hr 07/24/16 22:30 07/25/16 22:02 Sodium Chloride 0.9% IV 100 mls/hr .Q10H KELLEE Administration - Patient Studies Lab Studies: Lab Studies 07/26/16 07/25/16 Range/Units 05:30 13:00 WBC 5.0 (4.5-11.0) 10^3/ul RBC 3.82 (3.5-6.1) 10^6/uL Hgb 12.0 (12.0-16.0) gm/dL Hct 35.2 L (36.0-48.0) % MCV 92.1 (80.0-105.0) fL MCH 31.4 (25.0-35.0) pg MCHC 34.1 (31.0-37.0) g/dl RDW 13.7 (11.5-14.5) % Plt Count 217 (120.0-450.0) 10^3/uL MPV 9.8 (7.0-11.0) fl Gran % 60.9 (50.0-68.0) % Lymph % (Auto) 30.7 (22.0-35.0) % [place] % (Auto) 5.4 (1.0-6.0) % Eos % (Auto) 2.6 (1.5-5.0) % Baso % (Auto) 0.4 (0.0-3.0) % Gran # 3.04 (1.4-6.5) Lymph # 1.5 (1.2-3.4) [place] # 0.3 (0.1-0.6) Eos # 0.1 (0.0-0.7) Baso # 0.02 (0.0-2.0) K/mm3 PT 10.7 (9.9-11.8) Seconds INR 0.99 (0.93-1.08) APTT 25.2 (23.7-30.8) Seconds Sodium 142 (132-148) mmol/L Potassium 3.8 5.0 (3.6-5.0) mmol/L Chloride 108 H (98-107) mmol/L Carbon Dioxide 23 (21-33) mmol/L Anion Gap 15 (10-20) BUN 14 (7-21) mg/dL Creatinine 0.6 (0.5-1.4) mg/dL Est GFR ( Amer) > 60 Est GFR (Non-Af Amer) > 60 Random Glucose 85 (70-110) mg/dL Calcium 9.1 (8.4-10.5) mg/dL Phosphorus 3.8 (2.5-4.5) mg/dL Magnesium 1.8 (1.7-2.2) mg/dL Total Bilirubin 0.5 (0.2-1.3) mg/dL AST 27 (15-39) U/L ALT 39 (7-56) U/L Alkaline Phosphatase 53 (38-133) U/L Total Protein 6.7 (5.8-8.3) g/dL Albumin 3.6 (3.0-4.8) g/dL Globulin 3.2 gm/dL Albumin/Globulin Ratio 1.1 (1.1-1.8) Laboratory Results - last 24 hr 07/25/16 07/26/16 13:00 05:30 WBC 5.0 RBC 3.82 Hgb 12.0 Hct 35.2 L MCV 92.1 MCH 31.4 MCHC 34.1 RDW 13.7 Plt Count 217 MPV 9.8 Gran % 60.9 Lymph % (Auto) 30.7 [place] % (Auto) 5.4 Eos % (Auto) 2.6 Baso % (Auto) 0.4 Gran # 3.04 Lymph # 1.5 [place] # 0.3 Eos # 0.1 Baso # 0.02 PT 10.7 INR 0.99 APTT 25.2 Sodium 142 Potassium 5.0 3.8 Chloride 108 H Carbon Dioxide 23 Anion Gap 15 BUN 14 Creatinine 0.6 Est GFR ( Amer) > 60 Est GFR (Non-Af Amer) > 60 Random Glucose 85 Calcium 9.1 Phosphorus 3.8 Magnesium 1.8 Total Bilirubin 0.5 AST 27 ALT 39 Alkaline Phosphatase 53 Total Protein 6.7 Albumin 3.6 Globulin 3.2 Albumin/Globulin Ratio 1.1 EKG/Cardiology Studies: Cardiology / EKG Studies 07/25/16 11:32 EKG [ELECTROCARDIOGRAM] Stat Comment: Reason For Exam: heart block 3rd degree Review of Systems - Constitutional Constitutional: absent: Fever, Chills - EENT Eyes: absent: Blurred Vision, Loss of Vision Ears: absent: Dizziness Nose/Mouth/Throat: absent: Sore Throat, Neck Pain - Cardiovascular Cardiovascular: Palpitations. absent: Chest Pain, Dyspnea, Syncope - Respiratory Respiratory: absent: Cough, Dyspnea, Hemoptysis, Wheezing - Gastrointestinal Gastrointestinal: absent: Abdominal Pain, Constipation, Diarrhea, Nausea, Vomiting - Genitourinary Genitourinary: absent: Dysuria, Flank Pain, Hematuria - Musculoskeletal Musculoskeletal: absent: Neck Pain, Numbness, Radiating Pain into Limb - Integumentary Integumentary: absent: Pruritus, Rash - Neurological Neurological: absent: Confusion, Focal Weakness, Loss of Vision, Syncope, Weakness, Other Visual Disturbances - Psychiatric Psychiatric: Anxiety - Endocrine Endocrine: Palpitations. absent: Fatigue Critical Care Progress Note - Nutrition Nutrition: Nutrition Category Date Time Status Liquid Diet [DIET] Diets 07/26/16 Breakfast Ordered Assessment/Plan - Assessment and Plan (Free Text) Assessment: This is a 75 yo F with PMH of HTN, CVA, bradycardia, HLD, and breast cancer admitted for 3rd degree heart block causing bradycardia and syncopal episode. She is pending pacemaker placement as per Cardio. Plan: Neuro: -syncopal episode for several seconds prior to admission, no loss of memory, no falls, no trauma, no seizure-like activity, no recurrence -awake and alert, oriented x3 -moving all extremities spontaneously, follows all commands appropriately -maintain normothermia Pulm: -CTAB on exam -Satting > 90% on room air, no indication for supplemental O2 at this time -maintain SaO2 > 90%, paO2 > 60 Cardio: -EKG on arrival notable for complete heart block (3rd degree), repeat EKG shows NSR with RBBB, prolonged QTc and borderline prolonged AK -Per charting and patient, 1 episode of Mobitz II heart block noted when previously on holter monitor, no intervention required at that time (Holter done by Dr. Ziegler) -Cardio (Dr. Damon) consulted, appreciate all recs; pacer placement today -Per Cardio: Continue dobutamine drip, will d/c after pacer placement, then patient can be transferred to telemetry -NSR on ICU telemetry, rate 70's-80's -Cont ASA, Plavix, Lipitor -PRN hydralazine for SBP > 180 -NS IVF 100cc/hr -Maintain MAP > 65 GI: -Heart healthy diet -Pepcid for GI ppx Renal: -maintain euvolemia and euglycemia -Cr 0.6, was 0.7 -avoid nephrotoxic drugs as feasible -monitor and replete electrolytes as needed; low normal Mag, will replete Heme/ID: -no leukocytosis, afebrile -Hgb 12.0 (was 12.3) -continue to monitor Psych: -anxiety hx, continue home Xanax Dispo: ICU, pending cardiac pacemaker placement and then transfer to telemetry FEN: Heart-healthy diet, NS IVF 100cc/hr Access: Peripheral IVs Consult: Cardio Ppx: Pepcid for GI, SCDs for DVT Patient seen, reviewed, and discussed with attending, Dr. Carrillo. - Date & Time Date: 07/26/16 Time: 07:41 <Gerardo TATUM,Inamul H - Last Filed: 07/26/16 14:35> CCU Objective - Vital Signs / Intake & Output Vital Signs (Last 4 hours): Vital Signs Temp Pulse Resp BP Pulse Ox 07/26/16 12:00 85 25 H 173/94 H 97 07/26/16 11:42 97.7 F 07/26/16 11:00 77 16 134/69 94 L Intake and Output (Last 8hrs): Intake & Output 07/25/16 07/26/16 07/26/16 22:59 06:59 14:59 Intake Total 1660 2769 Output Total 600 725 Balance 1060 2044 Intake: IV 2709 Right Forearm 2709 Oral 400 60 Other 1260 Output: Urine 600 725 Urine, Voided 600 725 Stool 0 Other: Voiding Method Bedpan Bedpan - Medications Active Medications: Active Medications Generic Name Dose Route Start Last Admin Trade Name Freq PRN Reason Stop Dose Admin Acetaminophen/Butalbital/Caffeine 1 tab 07/25/16 01:46 07/25/16 01:59 Fioricet PO 1 tab Q4H PRN Administration Headache Alprazolam 0.25 mg 07/25/16 22:00 07/26/16 09:12 Xanax PO 08/01/16 22:01 0.25 mg Q12 KELLEE Administration Protocol Aspirin 81 mg 07/25/16 10:00 07/26/16 10:00 Aspirin Chewable PO Not Given DAILY KELLEE Atorvastatin Calcium 10 mg 07/25/16 17:00 07/25/16 17:00 Lipitor PO 10 mg DIN KELLEE Administration Clopidogrel Bisulfate 75 mg 07/25/16 10:00 07/26/16 10:00 Plavix PO Not Given DAILY KELLEE Famotidine 20 mg 07/25/16 10:00 07/26/16 09:45 Pepcid PO 20 mg BID KELLEE Administration Hydralazine HCl 10 mg 07/24/16 22:30 Apresoline IVP Q6 PRN Systolic Blood Pressure Sodium Chloride 1,000 mls @ 100 mls/hr 07/24/16 22:30 07/26/16 08:29 Sodium Chloride 0.9% IV 100 mls/hr .Q10H KELLEE Administration - Patient Studies Lab Studies: Lab Studies 07/26/16 Range/Units 05:30 WBC 5.0 (4.5-11.0) 10^3/ul RBC 3.82 (3.5-6.1) 10^6/uL Hgb 12.0 (12.0-16.0) gm/dL Hct 35.2 L (36.0-48.0) % MCV 92.1 (80.0-105.0) fL MCH 31.4 (25.0-35.0) pg MCHC 34.1 (31.0-37.0) g/dl RDW 13.7 (11.5-14.5) % Plt Count 217 (120.0-450.0) 10^3/uL MPV 9.8 (7.0-11.0) fl Gran % 60.9 (50.0-68.0) % Lymph % (Auto) 30.7 (22.0-35.0) % [place] % (Auto) 5.4 (1.0-6.0) % Eos % (Auto) 2.6 (1.5-5.0) % Baso % (Auto) 0.4 (0.0-3.0) % Gran # 3.04 (1.4-6.5) Lymph # 1.5 (1.2-3.4) [place] # 0.3 (0.1-0.6) Eos # 0.1 (0.0-0.7) Baso # 0.02 (0.0-2.0) K/mm3 PT 10.7 (9.9-11.8) Seconds INR 0.99 (0.93-1.08) APTT 25.2 (23.7-30.8) Seconds Sodium 142 (132-148) mmol/L Potassium 3.8 (3.6-5.0) mmol/L Chloride 108 H (98-107) mmol/L Carbon Dioxide 23 (21-33) mmol/L Anion Gap 15 (10-20) BUN 14 (7-21) mg/dL Creatinine 0.6 (0.5-1.4) mg/dL Est GFR ( Amer) > 60 Est GFR (Non-Af Amer) > 60 Random Glucose 85 (70-110) mg/dL Calcium 9.1 (8.4-10.5) mg/dL Phosphorus 3.8 (2.5-4.5) mg/dL Magnesium 1.8 (1.7-2.2) mg/dL Total Bilirubin 0.5 (0.2-1.3) mg/dL AST 27 (15-39) U/L ALT 39 (7-56) U/L Alkaline Phosphatase 53 (38-133) U/L Total Protein 6.7 (5.8-8.3) g/dL Albumin 3.6 (3.0-4.8) g/dL Globulin 3.2 gm/dL Albumin/Globulin Ratio 1.1 (1.1-1.8) Laboratory Results - last 24 hr 07/26/16 05:30 WBC 5.0 RBC 3.82 Hgb 12.0 Hct 35.2 L MCV 92.1 MCH 31.4 MCHC 34.1 RDW 13.7 Plt Count 217 MPV 9.8 Gran % 60.9 Lymph % (Auto) 30.7 [place] % (Auto) 5.4 Eos % (Auto) 2.6 Baso % (Auto) 0.4 Gran # 3.04 Lymph # 1.5 [place] # 0.3 Eos # 0.1 Baso # 0.02 PT 10.7 INR 0.99 APTT 25.2 Sodium 142 Potassium 3.8 Chloride 108 H Carbon Dioxide 23 Anion Gap 15 BUN 14 Creatinine 0.6 Est GFR ( Amer) > 60 Est GFR (Non-Af Amer) > 60 Random Glucose 85 Calcium 9.1 Phosphorus 3.8 Magnesium 1.8 Total Bilirubin 0.5 AST 27 ALT 39 Alkaline Phosphatase 53 Total Protein 6.7 Albumin 3.6 Globulin 3.2 Albumin/Globulin Ratio 1.1 Critical Care Progress Note - Nutrition Nutrition: Nutrition Category Date Time Status Liquid Diet [DIET] Diets 07/26/16 Breakfast Ordered Attending/Attestation - Attestation I have personally seen and examined this patient.: Yes I have fully participated in the care of the patient.: Yes I have reviewed all pertinent clinical information: Yes Notes (Text): 07/26/16 14:34 75 y/o F w/ Heart block and syncope On DObutamine per Cardiology w/ HR > 70 and no further symptoms Plans for PM placement today , and then stop Dobutamine ECHO as needed. Cardiac meds to restarted per Cardiology post PM placement. SCD cc time 45 min
[2016-07-26] MEDS ORDERED: Magnesium Sulfate 2 GM in Sodium Chloride 0.9% 100 ML IVPB ONE (07:58)
[2016-07-26] MEDS: Sodium Chloride 0.9% 1,000 ML IV SCH ×3 (08:29→17:07)
[2016-07-26] MEDS ORDERED: Lidocaine 2% Inj (20ml) ONE (12:52)
--- NOTE | 2016-07-26 13:38 | PN ---
DATE: 07/26/2016 SUBJECTIVE: The patient is 75 years old, seen and examined lying in bed, comfortable. No nausea, vo miting, no diarrhea. PHYSICAL EXAMINATION: VITAL SIGNS: She is afebrile, pulse 85, respirations 16, blood pressure 134/69. LUNGS: Bilateral fair airflow, no rhonchi or crackle. HEART: S1, S2 audible. ABDOMEN: Soft, nontender, no rebound, no guarding. NEUROLOGIC: The patient is awake and alert, moves all extremities. LABORATORY EXAMINATION: WBC is 5.0, hemoglobin 12, hematocrit 35, platelet 217. PT 10.7, INR 0.99. Chemistry: Sodium 142, potassium 3.8, chloride 108, CO2 of 23, BUN 14, creatinine 0.6, blood sugar of 85. ASSESSMENT AND PLAN: 1. Documented third degree heart block. 2. Multiple episodes of syncope, near syncope. 3. Hypertension. 4. Hyperlipidemia. PLAN: The patient is scheduled to have pacemaker placed today. Currently, she is on aspirin 81 kandice y. She is on Lipitor. She is on Plavix. She is off of dobutamine. So, patient will be watched in ICU until tomorrow. If she remains stable, we will make disposition plan over the weekend. Pranay Dunbar MD cc: [phone] TT: 07/26/2016 13:37:36 Confirmation # [id number] Dictation # [id number] sn
[2016-07-26] MEDS: Midazolam 2 MG/2 ML VIAL ONE ×2 (13:58→15:22)
--- NOTE | 2016-07-26 13:59 | PN ---
DATE: 07/26/2016 The patient has had no recurrent heart block. She is tolerating low dose dobutamine. PHYSICAL EXAMINATION: VITAL SIGNS: Blood pressure is 134/69. The heart rate is in the 80s, normal sinus rhythm. NECK: Negative JVD. LUNGS: Without rales. HEART: Reveals S1, S2. EXTREMITIES: Without edema. LABORATORY DATA: The hemoglobin is 12. Chemistries: BUN and creatinine unremarkable. IMPRESSION: 1. Status post recurrent syncope. 2. Documented transient third degree heart block. 3. History of hypertension. 4. Intermittent dizziness. 5. Hypercholesterolemia. 6. History of peripheral vascular disease with a carotid stent. PLAN: Given these findings, the patient is scheduled for pacemaker today. After the pacemaker, we w ill discontinue her inotropic therapy. The patient can be transferred to telemetry after. Ovi Damon MD cc: [phone] TT: 07/26/2016 13:58:40 Confirmation # [id number] Dictation # [id number] sn
[2016-07-26] MEDS ORDERED: Liquid Adhesive TOP ONE (14:49)
[2016-07-26] MEDS ORDERED: Oxycodone/Acetaminophen 5/325 mg Tab PO PRN (15:12)
--- NOTE | 2016-07-26 15:38 | CARD ---
APPROVED REPORT EKG Measurement Heart [id number] VT [id number] <Conclusion> Sinus rhythm with fusion complexes Right bundle branch block Abnormal ECG
--- NOTE | 2016-07-26 16:07 | RAD ---
HISTORY: post ppm implant COMPARISON: 07/24/2016 FINDINGS: LUNGS: No active pulmonary disease. PLEURA: No significant pleural effusion identified, no pneumothorax apparent. CARDIOVASCULAR: Left-sided dual lead pacemaker. No evidence of pneumothorax. Mild cardiomegaly OSSEOUS STRUCTURES: No significant abnormalities. VISUALIZED UPPER ABDOMEN: Normal. OTHER FINDINGS: None. IMPRESSION: No evidence of pneumothorax
[2016-07-26 21:08] VITALS: RESP 20
[2016-07-27 00:04] VITALS: TEMP 98.2
[2016-07-27] MEDS: Sodium Chloride 0.9% 1,000 ML IV SCH (01:44)
[2016-07-27 05:41] VITALS: BP 102/61; PULSE 79; O2SAT 96
[2016-07-27 07:17] LABS: ADD MANUAL DIFF? NO
[2016-07-27 07:30] LABS: BASO # 0.01 K/mm3 (0.0-2.0); BASO % 0.2 % (0.0-3.0); EOS # 0.1 (0.0-0.7); EOS % 2.2 % (1.5-5.0); GRAN # 3.57 (1.4-6.5); GRAN % 65.6 % (50.0-68.0); HEMATOCRIT 35.7 % (36.0-48.0); LYMPH # 1.4 (1.2-3.4); LYMPH % 25.2 % (22.0-35.0); MEAN CELL VOLUME 92.2 fL (80.0-105.0); MEAN CORPUSCULAR HEMOGLOBIN 31.3 pg (25.0-35.0); MEAN CORPUSCULAR HGB CONC 33.9 g/dl (31.0-37.0); MONO # 0.4 (0.1-0.6); MONO % 6.8 % (1.0-6.0); PLATELET COUNT 211 10^3/uL (120.0-450.0); RED CELL DISTRIBUTION WIDTH 13.8 % (11.5-14.5); WHITE BLOOD COUNT 5.4 10^3/ul (4.5-11.0)
[2016-07-27 07:43] LABS: INR 1.01 (0.93-1.08); PARTIAL THROMBOPLASTIN TIME 25.9 Seconds (23.7-30.8)
[2016-07-27 08:09] LABS: ALB/GLOB RATIO 1.2 (1.1-1.8); ALKALINE PHOSPHATASE 58 U/L (38-133); ALT/SGPT 38 U/L (7-56); AST/SGOT 32 U/L (15-39); BILIRUBIN,TOTAL 0.6 mg/dL (0.2-1.3); BLOOD UREA NITROGEN 15 mg/dL (7-21); CALCIUM 8.8 mg/dL (8.4-10.5); CARBON DIOXIDE 26 mmol/L (21-33); CHLORIDE 105 mmol/L (98-107); GFR AFRICAN-AMERICAN > 60; GLUCOSE,RANDOM 81 mg/dL (70-110); MAGNESIUM 1.9 mg/dL (1.7-2.2); PHOSPHOROUS 4.2 mg/dL (2.5-4.5); POTASSIUM 3.9 mmol/L (3.6-5.0); SODIUM 141 mmol/L (132-148); TOTAL PROTEIN 6.5 g/dL (5.8-8.3)
--- NOTE | 2016-07-27 08:30 | OP ---
PROCEDURE DATE: 07/26/2016 PREPROCEDURE DIAGNOSES: Intermittent heart block, syncope. PROCEDURE: Insertion of a dual chamber permanent pacemaker. BRIEF HISTORY: The patient is a very pleasant 75-year-old female with past medical history significant for hypertension, carotid artery disease, anxiety, breast cancer, hyperlipidemia and his tory of bradycardia who presents to the Emergency Department after being brought in from EMS followin g an episode of syncope. The patient was eating dinner at a restaurant, began to lean forward and lo st consciousness. The patient has no recollection of this event. The patient has had prior admissio ns for lightheadedness, dizziness, palpitations, and prior to that did have a life threatening episod e of loss of consciousness and syncope. She does and has seen me in the outpatient setting for this very reason. A 12-lead EKG at the time of presentation did show underlying sinus tachycardia with wh at appears to be a ventricular escape rhythm at 40 beats per minute. I was informed of the clinical events as well as the findings and felt that at this point patient would require a permanent pacemake r for chronotropic support to hopefully prevent further episodes of syncope. Informed consent was received from the patient for insertion of a dual chamber permanent pacemaker. Procedure and risks were discussed in detail. The patient's sister and daughter were present during the entire discussion. All questions were answered. DESCRIPTION OF PROCEDURE: The patient was brought to the cardiac lab[facility] at [facility] for insertion of a dual chamber permanent pacemaker. Left pectoral area was draped and prepped in a sterile fashion. Next, 2% lidocaine solution was injected into the surgical site. Using a 9 blade, a 3.5 cm incision was made 2 fingerbreadths below the clavicle. Using blunt dissection and electroca utery, the fascial planes were dissected. The cephalic vein was identified. Cephalic vein cutdown w as then performed without difficulty. A 0.035 guidewire used to insert and maintain access. Subsequ ently, a 9-[place] SafeSheath was then inserted again without difficulty. The right ventricular lead which is a 5076, 52 cm lead, serial number [id number] was inserted via this sheath and manipulated in to the right ventricular apex again without difficulty. Parameters on this lead through the program system analyzer are as follows: Threshold 0.6 volts at 0.5 milliseconds at a current of 1.0 milliamp s. Impedance on this lead is 675 which is within normal limits. R waves ultimately measured greater than 7.0. Using retained access, the access was maintained. A 7-[place] SafeSheath was then inserte d over the second wire. The right atrial lead which is a 5076, 45 cm lead, serial and [id number] was inserted via the sheath and manipulated into the right atrial appendage again without difficulty. P arameters on this lead through the program system analyzer are as follows: Threshold is 1.4 volts at 0.5 milliseconds at a current of 2.1 milliamps. Impedance is 717. P waves measured an impressive 3 .2 millivolts. Both leads were then inspected under fluoroscopic evaluation. Adequate slack was mad e. Both leads were then tied down using 0 silk suture. Subsequently, a subfascial pocket was made w ith blunt dissection and electrocautery, and irrigated with bacitracin solution. The leads were then connected to the pulse generator which is a [employer] MRI safe device, serial [id number]. Th e lead system and device were then coiled and then placed in the pocket again without difficulty. Tw o retention sutures were applied to prevent device migration. The deep fascial layers were brought t ogether using 0 silk sutures as well. The superficial fascial and skin layers were then brought toge ther using two layers of 2-0 Ethibond. Final layer was closed with Mastisol and Steri-Strips. A sma ll pressure dressing was then applied prior to the patient being transported back to the ICU. PLAN: The patient will be watched carefully. A 12-lead EKG, chest x-ray will be performed. Device check will occur in the morning. The patient's medical therapy will be optimized. The patient can b e reinitiated on beta roxane therapy. On fluoroscopy, there does appear to be some degree of aortop athy which will require further evaluation. Thank you for allowing me to participate in the care of your patient. Please do not hesitate to call if you have any questions in regards to her care. Сергей Ziegler MD cc:Ovi Damon MD [phone] TT: 07/26/2016 16:40:18 mn
--- NOTE | 2016-07-27 09:27 | PN ---
DATE: 07/27/2016 The patient is status post pacemaker placement for her heart block which resulted in a near-syncopal episode. The patient is awake, alert, without symptoms. Blood pressure 102/61, the heart rate is in the 90s. NECK: Negative JVD. LUNGS: Without rales. HEART: Reveals S1, S2. EXTREMITIES: Without edema. LABORATORIES: A chest x-ray shows no pneumothorax. The hemoglobin is 12.1. Chemistries are unremarkable. IMPRESSION: 1. Syncope. 2. Heart block. 3. Status post pacemaker placement. 4. History of peripheral vascular disease. Given these findings, the patient can be discharged today. Followup and instructions have been given to the patient in detail. Ovi Damon MD cc: [phone] TT: 07/27/2016 09:26:34 Confirmation # [id number] Dictation # [id number] riya
[2016-07-27] MEDS ORDERED: POLYETHYLENE GLYCOL 3350 17 GM/Dose PACKET PO SCH (10:00)
--- NOTE | 2016-07-27 12:40 | DS ---
The patient is a 75-year-old, seen and examined, doing well, sitting in chair, seems to be comfortabl e. No chest pain, no shortness of breath. PHYSICAL EXAMINATION: VITAL SIGNS: She is afebrile, pulse 79, respirations 20, blood pressure 102/61. LUNGS: Bilateral fair airflow, no rhonchi or crackle. HEART: S1, S2 audible. No murmur. ABDOMEN: Soft, nontender, no rebound, no guarding. CHEST: Left upper chest, she had pacemaker placed yesterday. NEUROLOGIC: She is awake and alert, able to communicate. LABORATORY EXAMINATION: WBCs 5.4, hemoglobin 12, hematocrit 35.7, platelets 211. PT 10.9, INR 1.01. Chemistry: Sodium 141, potassium 3.9, chloride 105, CO2 26, BUN 15, creatinine 0.8, blood sugar of 81. ASSESSMENT: 1. Status post sick sinus syndrome. 2. Documented third degree heart block. 3. Multiple admissions for near syncope. 4. Hypertension. 5. Hyperlipidemia. PLAN: We will continue patient on aspirin, Coreg. She is on Lipitor. We will continue that. She i s on famotidine. She is on Plavix and Xanax as needed. We will give her 1 week of Keflex. She will continue her losartan, Lipitor, Plavix and her metoprolol was stopped earlier. Now, she can be star saul again. She will follow up with her plate former and that decision will be made. Pranay Dunbar MD cc: [phone] TT: 07/27/2016 12:39:36 en
== END 2016-07-27 15:08 | disposition home health service (06) | DRG 244 ==
LOC: ED 21:12 → ERH 21:51 → CCU 07-25 00:04 → 2RSO 07-26 17:36
PROVIDERS: ADMIT Internal Medicine; ATTEND Internal Medicine
PROC: 0JH636Z Insertion of Pacemaker, Dual Chamber into Chest Subcutaneous Tissue and Fascia, Percutaneous Approach (ICD-10-PCS; principal; 2016-07-26)
PROC: 02H63JZ Insertion of Pacemaker Lead into Right Atrium, Percutaneous Approach (ICD-10-PCS; 2016-07-26)
PROC: 02HK3JZ Insertion of Pacemaker Lead into Right Ventricle, Percutaneous Approach (ICD-10-PCS; 2016-07-26)
DX: I44.2 Atrioventricular block, complete (principal); I49.5 Sick sinus syndrome; I10 Essential (primary) hypertension; E78.5 Hyperlipidemia, unspecified; F41.9 Anxiety disorder, unspecified; E78.00 Pure hypercholesterolemia, unspecified; I73.9 Peripheral vascular disease, unspecified; Z85.3 Personal history of malignant neoplasm of breast; Z86.73 Personal history of transient ischemic attack (TIA), and cerebral infarction without residual deficits; Z79.82 Long term (current) use of aspirin

== ENCOUNTER 2016-07-31 12:10 | Observation (INO) | payer MEDICARE, BC ==
[2016-07-31 12:11] VITALS: BMI 24.3
[2016-07-31 12:27] VITALS: RESP 16; TEMP 98; O2SAT 97
--- NOTE | 2016-07-31 12:31 | ED PDOC ---
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 Patient was discharged home 07/27 after uneventful [employer] PPM placement. Patient was previously on Nebivolol, which was changed to Metoprolol after PPM placement. Patient states she was feeling well upon discharge 07/27, had no problems the following day, then started having palpitations and midsternal CP the day after discharge (07/29). Patient states the palpitations she had prior to pacemaker placement felt like "fast heartbeat;" palpitations for the past 2 days have felt "like a pounding, throbbing beat in my chest." Patient also admits to mild , intermittent 3-4/10 dull, sore misternal CP x2 days that is exacerbated by movement and direct palpation of the area. Denies any problems with PPM site, denies discharge, erythema, edema, pruritus. Admits to intermittent dizziness and lightheadedness, and states anxiety exacerbates these symptoms. Patient's daughter, who is at bedside, states patient has had mild decrease in PO intake for the past 2 days and had been relatively anxious throughout that time as well. Patient denies fevers, chills, SOB, abd pain, n/v/d/c, pre-syncope, confusion. (Sharee Cano) Past Medical History - Provider Review Nursing Documentation Reviewed: Yes - Travel History Have you recently traveled outside [place] w/in the past 3 mons?: No - Infectious Disease Hx of Infectious Diseases: None - Tetanus Immunization Tetanus Immunization: Unknown - Cardiac Hx Cardiac Disorders: Yes (bradycardia) Hx Congestive Heart Failure: Yes Hx Hypertension: Yes - Pulmonary Hx Chronic Obstructive Pulmonary Disease (COPD): Yes - Neurological HX Cerebrovascular Accident: Yes - HEENT Hx HEENT Disorder: Yes (rx glasses.) - Renal Hx Renal Disorder: No Hx Renal Failure: No - Endocrine/Metabolic Hx Endocrine Disorders: No Hx Diabetes Mellitus Type 1: No Hx Diabetes Mellitus Type 2: No Hx Hypothyroidism: No - Hematological/Oncological Hx Blood Disorders: Yes Hx Cancer: Yes (BREAST LUMPECTOMY WITH RADIATION AND CHEMO COMPLETED) Hx Chemotherapy: Yes Other/Comment: LEFT LIMB ALERT - Integumentary Hx Dermatological Disorder: No - Musculoskeletal/Rheumatological Hx Musculoskeletal Disorders: No Hx Arthritis: No Hx Falls: No - Gastrointestinal Hx Gastrointestinal Disorders: No Hx Gastroesophageal Reflux: No - Genitourinary/Gynecological Hx Genitourinary Disorders: Yes (BREAST LUMPECTOMY) - Psychiatric Hx Psychophysiologic Disorder: Yes Hx Anxiety: Yes Hx Depression: No Hx Emotional Abuse: No Hx Physical Abuse: No Hx Substance Use: No - Surgical History Hx Coronary Stent: Yes (stent to carotid artery) Hx Hysterectomy: Yes - Anesthesia Hx Anesthesia: Yes Hx Anesthesia Reactions: No Hx Malignant Hyperthermia: No - Suicidal Assessment Feels Threatened In Home Enviroment: No <Sharee Cano - Last Filed: 07/31/16 19:07> Family/Social History - Physician Review Nursing Documentation Reviewed: Yes Family/Social History: Hypertension, CAD/SD Smoking Status: Never Smoked Hx Alcohol Use: No Hx Substance Use: No Hx Substance Use Treatment: No <Sharee Cano - Last Filed: 07/31/16 19:07> Allergies/Home Meds <Sharee Cano - Last Filed: 07/31/16 19:07> <Nuris Burris - Last Filed: 07/31/16 19:32> Allergies/Adverse Reactions: Allergies No Known Allergies Allergy (Verified 07/31/16 12:22) Home Medications: Home Meds Medication Instructions Recorded Confirmed Alprazolam [Xanax] 0.25 mg PO PRN PRN 08/26/11 07/24/16 Clopidogrel [Plavix] 1 tab PO DAILY 05/05/16 07/24/16 Aspirin [Aspirin Chewable] 1 tab PO DAILY 05/18/16 07/24/16 Atorvastatin [Lipitor] 10 mg PO DIN 06/18/16 07/24/16 Metoprolol Tartrate [Lopressor] 12.5 mg PO BID 06/18/16 07/24/16 Losartan/Hydrochlorothiazide 1 tab PO DAILY 07/27/16 07/27/16 [Hyzaar 100-25 Tablet] Review of Systems - Physician Review All systems were reviewed & negative as marked: Yes - Review of Systems Constitutional: Normal. absent: Fatigue, Fevers Eyes: Normal. absent: Vision Changes, Photophobia ENT: Normal. absent: Sore Throat Respiratory: absent: SOB, Cough Cardiovascular: Chest Pain (misternal intermittent dull, sore pain worse with palpiation and movement), Palpitations. absent: Edema, Calf Pain, RENTERIA, Orthopnea, Syncope Gastrointestinal: absent: Abdominal Pain, Constipation, Diarrhea, Nausea, Vomiting Genitourinary Female: absent: Dysuria, Frequency Musculoskeletal: absent: Arthralgias, Back Pain, Joint Swelling Skin: absent: Rash, Skin Lesions Neurological: absent: Headache, Dizziness, Focal Weakness, Disequilibrium, Seizure Endocrine: absent: Diaphoresis, Polyuria, Polydipsia Hemo/Lymphatic: absent: Easy Bleeding, Easy Bruising Psychiatric: Anxiety. absent: Depression <Sharee Cano - Last Filed: 07/31/16 19:07> Physical Exam Vital Signs Reviewed: Yes Temperature: Afebrile Blood Pressure: Normal Pulse: Regular Respiratory Rate: Normal Appearance: Positive for: Well-Appearing, Non-Toxic, Comfortable Pain Distress: None Mental Status: Positive for: Alert and Oriented X 3 - Systems Exam Head: Present: Atraumatic, Normocephalic Pupils: Present: PERRL Extroacular Muscles: Present: EOMI Conjunctiva: Present: Normal Ears: Present: Normal Mouth: Present: Moist Mucous Membranes Neck: Present: Normal Range of Motion. No: Meningeal Signs, JVD Respiratory/Chest: Present: Clear to Auscultation, Good Air Exchange. No: Respiratory Distress, Accessory Muscle Use Cardiovascular: Present: Regular Rate and Rhythm, Normal S1, S2 Abdomen: Present: Normal Bowel Sounds. No: Tenderness, Distention, Peritoneal Signs Upper Extremity: Present: Normal Inspection. No: Cyanosis, Edema Lower Extremity: Present: Normal Inspection. No: Edema, CALF TENDERNESS Neurological: Present: GCS=15, CN II-XII Intact, Speech Normal Skin: Present: Warm, Dry, Rashes, Normal Color Psychiatric: Present: Alert, Oriented x 3, Normal Insight, Normal Concentration <Sharee Cano Filed: 07/31/16 19:07> Medical Decision Making Reassessment Condition: Re-examined, Unchanged - Lab Interpretations I have reviewed the lab results: Yes - RAD Interpretation Route Relief Driver: Radiologist - EKG Interpretation Interpreted by ED Physician: Yes Type: 12 lead EKG <Sharee Cano - Last Filed: 07/31/16 19:07> <Nuris Burris - Last Filed: 07/31/16 19:32> ED Course and Treatment: 07/31/16 19:31 [employer] said pacer function has been normal. CE negative - ok for d/c to f/u Dr. Santiaog tomorrow. (Nuris Burris) - RAD Interpretation Narrative RAD Interpretations (Text): 07/31/16 14:45 CXR - no active disease. (Sharee Cano) - EKG Interpretation EKG Interpretation (Text): 07/31/16 14:38 NSR, 79 bpm, normal intervals, RBBB, ST/T wave changes. New T wave inversions V2 , V3 vs EKG 07/26. (Sharee Cano) - Medication Orders Current Medication Orders: Discontinued Medications Sodium Chloride (Sodium Chloride 0.9%) 500 mls @ 999 mls/hr IV .Q31M STA Stop: 07/31/16 15:03 Last Admin: 07/31/16 15:14 Dose: 999 mls/hr Potassium Chloride (Potassium Chloride Oral Soln) 40 meq PO STAT STA Stop: 07/31/16 14:33 Last Admin: 07/31/16 15:14 Dose: 40 meq ED OBSERVATION Date of observation admission: 07/31/16 Time of observation admission: 12:22 <Sharee Cano - Last Filed: 07/31/16 19:07> <Nuris Burris - Last Filed: 07/31/16 19:32> - Observation admission statement Patient is being placed in observation because:: CP (Sharee Cano) - Goals of Observation Goals of observation are:: To obtain 2 sets cardiac enzymes and metronic PPM interrogation. (Sharee Cano) - Progress Note Progress Note: 07/31/16 13:[address] Jacquie Ziegler, who states he has contacted [employer] to come interrogate the patient's pacemaker. If all checks out and no arrhythmias are found, Dr. Ziegler states patient can followup in office. She has an appointment tomorrow at 1pm. Patient states she currently feels well, no palpitations since presentation. States she took her 0.25mg Xanax approx 30 minutes prior to presentation. States she experienced another brief episode of CP when she bent over while using the restroom; states quality has not changed and sensation is still reproducible on palpation of the patient's midsternum. Patient's daughter is at bedside and is also in agreement with plan - [employer] PPM interrogation, Cardiac enzymes x2 07/31/16 14:40 Labs reviewed. K low at 3.2, 40mg PO KCl given, IVF 07/31/16 18:45 Pacemaker was interrogated by [employer] rep, states the device is working normally, no problems, no arrhythmias. Patient will be discharged home, will followup with Dr. Ziegler in the office at 1pm tomorrow. Patient and daughter are understanding of plan and agree with aforementioned plan. (Sharee Cano) Patient seen and examined with resident. Came up with treatment and disposition plan with resident. The patient is a 75 year old female who comes to the emergency department for evaluation of palpitations and dizziness. Patient reports some chest pain, which is only presents when bending or getting out of bed. Pain is consistent with musculoskeletal pain. Will precede with plans discussed with Dr. Ziegler. Will have [employer] evaluated and obtain a second set of cardiac enzymes. If all finding are negative will discharge patient home with instructions to follow up with Dr. Ziegler in the office tomorrow. (Nuris Burris) <Sharee Cano - Last Filed: 07/31/16 19:07> - Scribe Statement The provider has reviewed the documentation as recorded by the Scribe <Nuris Burris - Last Filed: 07/31/16 19:32> - Scribe Statement Kavin Biggs Provider Scribe Attestation: All medical record entries made by the Scribe were at my direction and personally dictated by me. I have reviewed the chart and agree that the record accurately reflects my personal performance of the history, physical exam, medical decision making, and the department course for this patient. I have also personally directed, reviewed, and agree with the discharge instructions and disposition. (Nuris Burris) Disposition/Present on Arrival - Present on Arrival Any Indicators Present on Arrival: No History of DVT/PE: No History of Uncontrolled Diabetes: No Urinary Catheter: No History of Decub. Ulcer: No History Surgical Site Infection Following: None - Disposition Have Diagnosis and Disposition been Completed?: Yes Disposition Time: 18:47 Patient Plan: Discharge <Sharee Cano - Last Filed: 07/31/16 19:07> <Nuris Burris - Last Filed: 07/31/16 19:32> - Disposition Diagnosis: Anxiety, Complete heart block, post-surgical Disposition: HOME/ ROUTINE Patient Problems: Current Active Problems Problem Status Onset Anxiety Acute Complete heart block, post-surgical Acute Condition: STABLE
--- NOTE | 2016-07-31 13:17 | RAD ---
HISTORY: recent pm placement now dizzy COMPARISON: 07/26/2016 FINDINGS: LUNGS: No active pulmonary disease. PLEURA: No significant pleural effusion identified, no pneumothorax apparent. CARDIOVASCULAR: Normal. OSSEOUS STRUCTURES: No significant abnormalities. VISUALIZED UPPER ABDOMEN: Normal. OTHER FINDINGS: Dual lead pacemaker. IMPRESSION: No active disease.
[2016-07-31 13:34] LABS: ADD MANUAL DIFF? NO
[2016-07-31 13:47] LABS: BASO # 0.01 K/mm3 (0.0-2.0); BASO % 0.2 % (0.0-3.0); EOS # 0.1 (0.0-0.7); GRAN # 4.29 (1.4-6.5); GRAN % 74.9 % (50.0-68.0); HEMATOCRIT 36.8 % (36.0-48.0); LYMPH % 17.8 % (22.0-35.0); MEAN CELL VOLUME 91.5 fL (80.0-105.0); MEAN CORPUSCULAR HEMOGLOBIN 30.8 pg (25.0-35.0); MEAN CORPUSCULAR HGB CONC 33.7 g/dl (31.0-37.0); MEAN PLATELET VOLUME 9.9 fl (7.0-11.0); MONO # 0.4 (0.1-0.6); MONO % 6.1 % (1.0-6.0); PLATELET COUNT 217 10^3/uL (120.0-450.0); RED CELL DISTRIBUTION WIDTH 13.8 % (11.5-14.5); WHITE BLOOD COUNT 5.7 10^3/ul (4.5-11.0)
[2016-07-31 13:53] LABS: INR 1.03 (0.93-1.08); PARTIAL THROMBOPLASTIN TIME 25.2 Seconds (23.7-30.8)
[2016-07-31 13:56] LABS: ALB/GLOB RATIO 1.2 (1.1-1.8); ALKALINE PHOSPHATASE 61 U/L (38-133); ALT/SGPT 36 U/L (7-56); AST/SGOT 26 U/L (15-39); BILIRUBIN,TOTAL 0.7 mg/dL (0.2-1.3); BLOOD UREA NITROGEN 26 mg/dL (7-21); CALCIUM 9.7 mg/dL (8.4-10.5); CARBON DIOXIDE 25 mmol/L (21-33); CHLORIDE 101 mmol/L (98-107); GFR AFRICAN-AMERICAN > 60; GLUCOSE,RANDOM 136 mg/dL (70-110); LIPASE 421 U/L (23-300); MAGNESIUM 1.9 mg/dL (1.7-2.2); POTASSIUM 3.2 mmol/L (3.6-5.0); SODIUM 140 mmol/L (132-148); TOTAL PROTEIN 7.5 g/dL (5.8-8.3)
[2016-07-31 14:06] LABS: TROPONIN I < 0.01 ng/mL
[2016-07-31 14:17] LABS: URINE BILIRUBIN NEGATIVE (NEGATIVE); URINE BLOOD NEGATIVE (NEGATIVE); URINE GLUCOSE (UA) NEGATIVE (NEGATIVE); URINE KETONE NEGATIVE (NEGATIVE); URINE LEUKOCYTE ESTERASE NEGATIVE Leu/uL (NEGATIVE); URINE PROTEIN NEGATIVE mg/dL (<30 mg/dL); URINE UROBILINOGEN 0.2 E.U./dL (<1 E.U./dL)
[2016-07-31 14:18] LABS: URINE APPEARANCE CLEAR (CLEAR); URINE COLOR YELLOW (YELLOW)
[2016-07-31 14:22] VITALS: BP 113/62; PULSE 76
[2016-07-31] MEDS ORDERED: Potassium Chloride 40 mEq/30 ml LIQ UD PO STA (14:32)
[2016-07-31] MEDS ORDERED: Sodium Chloride 0.9% 500 ML IV STA (14:33)
[2016-07-31 16:39] LABS: TROPONIN I 0.01 ng/mL
--- NOTE | 2016-08-01 13:06 | CARD ---
APPROVED REPORT EKG Measurement Heart [id number] <Conclusion> Normal sinus rhythm Right bundle branch block Abnormal ECG
--- NOTE | 2016-08-01 13:10 | CARD ---
APPROVED REPORT EKG Measurement Heart [id number] <Conclusion> Normal sinus rhythm Right bundle branch block Possible Inferior infarct, age undetermined Abnormal ECG
== END 2016-07-31 18:47 | disposition home or self-care (01) ==
LOC: ED 12:10 → EROBSV 12:22
PROVIDERS: ADMIT Emergency Medicine; ATTEND Emergency Medicine
DX: I44.2 Atrioventricular block, complete (principal); F41.9 Anxiety disorder, unspecified; Z98.890 Other specified postprocedural states; I25.10 Atherosclerotic heart disease of native coronary artery without angina pectoris; I10 Essential (primary) hypertension; E78.5 Hyperlipidemia, unspecified; Z86.73 Personal history of transient ischemic attack (TIA), and cerebral infarction without residual deficits
CPT/HCPCS: 71010; 80053; 81003; 82550; 83615; 83690; 83735; 84484; 85025; 85610; 85730; 93005; 99285; J3480; J7040

== ENCOUNTER 2017-05-08 22:04 | Observation (INO) | payer MEDICARE, BC ==
--- NOTE | 2017-05-08 22:44 | ED PDOC ---
Arrival/HPI - General Chief Complaint: Abdominal Pain Time Seen by Provider: 05/08/17 22:08 Historian: Patient - History of Present Illness Narrative History of Present Illness (Text): 05/08/17 22:44 Majo Chahal is a 76 year old female, whose past medical history includes hypertension, hyperlipidemia, breast cancer, pacemaker, and carotid endarterectomy, who presents to the Emergency department complaining of epigastric pain and cold-like symptoms. Patient states she has been experiencing cold-like symptoms, sinus congestion, and productive cough intermittently for the past few weeks. Patient states she was prescribed Cefuroxime, Benzonatate, and Promethazine by her PMD with minimal relief. Patient also reports she began experiencing epigastric pain. Patient denies any fever, nausea, vomiting, neck pain, headache, dizziness, or any other complaints. Symptom Onset: Gradual Symptom Course: Unchanged Activities at Onset: Light Context: Home Past Medical History - Provider Review Nursing Documentation Reviewed: Yes - Infectious Disease Hx of Infectious Diseases: None - Tetanus Immunization Tetanus Immunization: Unknown - Cardiac Hx Hypertension: Yes Hx Pacemaker: Yes - Pulmonary Hx Chronic Obstructive Pulmonary Disease (COPD): Yes - Neurological HX Cerebrovascular Accident: Yes - HEENT Hx HEENT Disorder: Yes (rx glasses.) - Renal Hx Renal Disorder: No Hx Renal Failure: No - Endocrine/Metabolic Hx Endocrine Disorders: No Hx Diabetes Mellitus Type 1: No Hx Diabetes Mellitus Type 2: No Hx Hypothyroidism: No - Hematological/Oncological Hx Blood Disorders: Yes Hx Cancer: Yes (BREAST LUMPECTOMY WITH RADIATION AND CHEMO COMPLETED) Hx Chemotherapy: Yes Other/Comment: LEFT LIMB ALERT - Integumentary Hx Dermatological Disorder: No - Musculoskeletal/Rheumatological Hx Musculoskeletal Disorders: No Hx Arthritis: No Hx Falls: No - Gastrointestinal Hx Gastrointestinal Disorders: No Hx Gastroesophageal Reflux: No - Genitourinary/Gynecological Hx Genitourinary Disorders: Yes (BREAST LUMPECTOMY) - Psychiatric Hx Psychophysiologic Disorder: Yes Hx Anxiety: Yes Hx Depression: No Hx Emotional Abuse: No Hx Physical Abuse: No Hx Substance Use: No - Surgical History Hx Coronary Stent: Yes (stent to carotid artery) Hx Hysterectomy: Yes - Anesthesia Hx Anesthesia: Yes Hx Anesthesia Reactions: No Hx Malignant Hyperthermia: No - Suicidal Assessment Feels Threatened In Home Enviroment: No Family/Social History - Physician Review Nursing Documentation Reviewed: Yes Family/Social History: Unknown Family HX Smoking Status: Never Smoked Hx Alcohol Use: No Hx Substance Use: No Hx Substance Use Treatment: No Allergies/Home Meds Allergies/Adverse Reactions: Allergies No Known Allergies Allergy (Verified 05/09/17 20:01) Home Medications: Home Meds Medication Instructions Recorded Confirmed Alprazolam [Xanax] 0.25 mg PO PRN PRN 08/26/11 05/09/17 Clopidogrel [Plavix] 1 tab PO DAILY 05/05/16 05/09/17 Aspirin [Aspirin Chewable] 1 tab PO DAILY 05/18/16 05/09/17 Metoprolol Tartrate [Lopressor] 12.5 mg PO BID 06/18/16 05/09/17 Losartan/Hydrochlorothiazide 1 tab PO DAILY 07/27/16 05/09/17 [Hyzaar 100-25 Tablet] Review of Systems - Physician Review All systems were reviewed & negative as marked: Yes - Review of Systems Constitutional: Normal. absent: Fevers Eyes: Normal ENT: Sinus Congestion, Other (+cold-like symptoms) Respiratory: Cough, Sputum Gastrointestinal: Abdominal Pain Genitourinary Female: Normal. absent: Dysuria, Frequency, Hematuria, Urine Output Changes Musculoskeletal: Normal. absent: Back Pain, Neck Pain Skin: Normal. absent: Rash Neurological: Normal. absent: Dizziness Endocrine: Normal Hemo/Lymphatic: Normal Psychiatric: Normal Physical Exam Vital Signs Reviewed: Yes Vital Signs Temp Pulse Resp BP Pulse Ox 05/09/17 18:27 69 128/77 05/09/17 17:56 98.3 F 69 20 128/77 96 05/09/17 11:36 64 149/67 05/09/17 04:44 64 18 149/67 95 05/09/17 01:16 97.9 F 68 19 133/81 98 05/08/17 22:38 98.0 F 91 H 18 159/82 H 96 Temperature: Afebrile Blood Pressure: Hypertensive Pulse: Regular Respiratory Rate: Normal Appearance: Positive for: Well-Appearing, Non-Toxic, Comfortable Pain Distress: None Mental Status: Positive for: Alert and Oriented X 3 - Systems Exam Head: Present: Atraumatic, Normocephalic Pupils: Present: PERRL Extroacular Muscles: Present: EOMI Conjunctiva: Present: Normal Mouth: Present: Moist Mucous Membranes Neck: Present: Normal Range of Motion Respiratory/Chest: Present: Clear to Auscultation, Good Air Exchange. No: Respiratory Distress, Accessory Muscle Use Cardiovascular: Present: Regular Rate and Rhythm, Normal S1, S2. No: Murmurs Abdomen: Present: Tenderness (Epigastric tenderness), Normal Bowel Sounds. No: Distention, Peritoneal Signs Back: Present: Normal Inspection Upper Extremity: Present: Normal Inspection. No: Cyanosis, Edema Lower Extremity: Present: Normal Inspection. No: Edema Neurological: Present: GCS=15, CN II-XII Intact, Speech Normal Skin: Present: Warm, Dry, Normal Color. No: Rashes Psychiatric: Present: Alert, Oriented x 3, Normal Insight, Normal Concentration Medical Decision Making ED Course and Treatment: 05/08/17 22:44 Impression: 76 year old female complaining of epigastric pain, cold-like symptoms, sinus congestion, and cough. Plan: -- EKG -- Labs, cardiac enzymes, lipase, amylase, blood cultures -- Urinalysis, urine cultures -- Reassess and disposition Progress Notes: Reviewed EKG, 100% paced at 80 bpm. 05/09/17 00:14 CXR reviewed, shows no acute processes. 05/09/17 01:[address] Dunbar, who is aware and agrees with plan. Accepts pt in to her service. Pt will go to Telemetry observation for chest pain. - Lab Interpretations Microbiology Results: Microbiology Results 05/08/17 23:55 Urine,Clean Catch Urine Culture - Final Gram Positive Cocci 05/08/17 23:34 Blood-Venous Blood Culture - Preliminary NO GROWTH AFTER 24 HOURS 05/08/17 23:12 Blood-Venous Blood Culture - Preliminary NO GROWTH AFTER 24 HOURS Lab Results: 05/08/17 23:34 05/08/17 23:34 Lab Results 05/08/17 23:55: Urine Color Yellow, Urine Appearance Clear, Urine pH 6.0, Ur Specific [place] 1.020, Urine Protein Negative, Urine Glucose (UA) Negative, Urine Ketones Negative, Urine Blood Negative, Urine Nitrate Negative, Urine Bilirubin Negative, Urine Urobilinogen 0.2, Ur Leukocyte Esterase Negative 05/08/17 23:34: NT-Pro-B Natriuret Pep 65.5 05/08/17 23:34: Sodium 142, Potassium 3.6, Chloride 108 H, Carbon Dioxide 21, Anion Gap 17, BUN 27 H, Creatinine 0.9, Est GFR ( Amer) > 60, Est GFR ( Non-Af Amer) > 60, Random Glucose 119 H, Calcium 10.2, Total Bilirubin 0.4, AST 39 H, ALT 39, Alkaline Phosphatase 61, Lactate Dehydrogenase 559, Total Creatine Kinase 217, Troponin I < 0.01, Total Protein 7.7, Albumin 4.1, Globulin 3.6, Albumin/Globulin Ratio 1.2, Amylase 90, Lipase 212 05/08/17 23:34: PT 11.9, INR 1.04, APTT 30.3 05/08/17 23:34: WBC 5.3, RBC 4.29, Hgb 13.6, Hct 39.7, MCV 92.5, MCH 31.7, MCHC 34.3, RDW 13.4, Plt Count 265, MPV 10.4, Gran % 56.1, Lymph % (Auto) 34.2, [place] % (Auto) 7.4 H, Eos % (Auto) 1.9, Baso % (Auto) 0.4, Gran # 2.98, Lymph # (Auto ) 1.8, [place] # (Auto) 0.4, Eos # (Auto) 0.1, Baso # (Auto) 0.02 I have reviewed the lab results: Yes - RAD Interpretation Radiology Orders: 05/09/17 00:34 CHEST PORTABLE [RAD] Stat Paving Stone Installer: ED Physician - EKG Interpretation Interpreted by ED Physician: Yes Type: 12 lead EKG - Medication Orders Current Medication Orders: Acetaminophen (Tylenol 325mg Tab) 650 mg PO Q4H PRN PRN Reason: Pain, Mild (1-3) Aspirin (Aspirin Chewable) 81 mg PO DAILY [facility] Last Admin: 05/10/17 10:25 Dose: 81 mg Clopidogrel Bisulfate (Plavix) 75 mg PO DAILY [facility] Last Admin: 05/10/17 10:25 Dose: 75 mg Hydrochlorothiazide (Hydrodiuril) 25 mg PO DAILY [facility] Last Admin: 05/10/17 10:26 Dose: 25 mg Losartan Potassium (Cozaar) 100 mg PO DAILY [facility] Last Admin: 05/10/17 10:25 Dose: 100 mg Metoprolol Tartrate (Lopressor) 12.5 mg PO BID [facility] Last Admin: 05/10/17 10:26 Dose: 12.5 mg MAR Pulse and Blood Pressure Document 05/10/17 10:26 DH (Rec: 05/10/17 10:27 DH [id number]) Pulse Pulse Rate (60-90) 92 Blood Pressure Blood Pressure (100/60-150/90) 140/88 Pantoprazole Sodium (Protonix Ec Tab) 40 mg PO DAILY [facility] Last Admin: 05/10/17 10:25 Dose: 40 mg Promethazine HCl/Dextromethorphan (Phenergan Dm Syrup) 5 ml PO Q6H PRN PRN Reason: Cough Last Admin: 05/09/17 18:27 Dose: 5 ml Discontinued Medications Alprazolam (Xanax) 0.25 mg PO BID STA PRN Reason: Protocol Stop: 05/09/17 11:11 Last Admin: 05/09/17 11:36 Dose: 0.25 mg Behavioural Document 05/09/17 11:36 MM (Rec: 05/09/17 11:36 MM [id number]) Nonmedicinal Nonmedicinal Interventions Redirect Therapeutic Communication Re-Assess: Reassess Psych Meds Document 05/09/17 12:36 MM (Rec: 05/09/17 18:24 MM [id number]) Reassess Psych Med Effective Hydrochlorothiazide (Hydrodiuril) 25 mg PO STAT STA Stop: 05/09/17 11:16 Last Admin: 05/09/17 12:08 Dose: 25 mg Losartan Potassium (Cozaar) 100 mg PO STAT STA Stop: 05/09/17 11:15 Last Admin: 05/09/17 12:09 Dose: 100 mg Pantoprazole Sodium (Protonix Inj) 40 mg IVP ONCE STA Stop: 05/09/17 00:35 Last Admin: 05/09/17 01:16 Dose: 40 mg IVP Administration Document 05/09/17 01:16 [email or web address] (Rec: 05/09/17 01:16 [email or web address] [email or web address]) Charges for Administration # of IVP Administrations 1 Pneumococcal Polyvalent Vaccine (Pneumovax 23 Vaccine) 0.5 ml IM .ONCE ONE Stop: 05/09/17 22:44 - Scribe Statement The provider has reviewed the documentation as recorded by the Eloiseibriky Ovalle Provider Scribe Attestation: All medical record entries made by the Scribe were at my direction and personally dictated by me. I have reviewed the chart and agree that the record accurately reflects my personal performance of the history, physical exam, medical decision making, and the department course for this patient. I have also personally directed, reviewed, and agree with the discharge instructions and disposition. Disposition/Present on Arrival - Present on Arrival Any Indicators Present on Arrival: No History of DVT/PE: No History of Uncontrolled Diabetes: No Urinary Catheter: No History of Decub. Ulcer: No History Surgical Site Infection Following: None - Disposition Have Diagnosis and Disposition been Completed?: Yes Diagnosis: Exertional dyspnea Disposition: HOSPITALIZED Disposition Time: 02:00 Condition: FAIR
[2017-05-09 00:25] LABS: URINE BILIRUBIN NEGATIVE (NEGATIVE); URINE BLOOD NEGATIVE (NEGATIVE); URINE GLUCOSE (UA) NEGATIVE (NEGATIVE); URINE LEUKOCYTE ESTERASE NEGATIVE Leu/uL (NEGATIVE); URINE NITRATE NEGATIVE (NEGATIVE); URINE PROTEIN NEGATIVE mg/dL (<30 mg/dL); URINE UROBILINOGEN 0.2 E.U./dL (<1 E.U./dL)
[2017-05-09 00:27] LABS: URINE APPEARANCE CLEAR (CLEAR)
[2017-05-09 00:28] LABS: URINE COLOR YELLOW (YELLOW)
[2017-05-09 00:29] LABS: INR 1.04 (0.93-1.08); PARTIAL THROMBOPLASTIN TIME 30.3 Seconds (25.1-36.5); PROTHROMBIN TIME 11.9 SECONDS (9.4-12.5)
[2017-05-09 00:30] LABS: BASO # 0.02 K/mm3 (0.0-2.0); BASO % 0.4 % (0.0-3.0); EOS # 0.1 (0.0-0.7); EOS % 1.9 % (1.5-5.0); GRAN # 2.98 (1.4-6.5); GRAN % 56.1 % (50.0-68.0); HEMOGLOBIN 13.6 g/dL (12.0-16.0); LYMPH # 1.8 (1.2-3.4); LYMPH % 34.2 % (22.0-35.0); MEAN CELL VOLUME 92.5 fl (80.0-105.0); MEAN CORPUSCULAR HEMOGLOBIN 31.7 pg (25.0-35.0); MEAN CORPUSCULAR HGB CONC 34.3 g/dl (31.0-37.0); MEAN PLATELET VOLUME 10.4 fl (7.0-11.0); MONO # 0.4 (0.1-0.6); MONO % 7.4 % (1.0-6.0); RBC 4.29 10^6/uL (3.5-6.1); RED CELL DISTRIBUTION WIDTH 13.4 % (11.5-14.5); WHITE BLOOD COUNT 5.3 10^3/ul (4.5-11.0)
[2017-05-09 00:31] LABS: ALB/GLOB RATIO 1.2 (1.1-1.8); ALBUMIN 4.1 g/dL (3.0-4.8); AMYLASE 90 U/L (35-125); CALCIUM 10.2 mg/dL (8.4-10.5); GFR AFRICAN-AMERICAN > 60; GFR NON-AFRICAN AMERICAN > 60; LIPASE 212 U/L (23-300)
[2017-05-09 00:42] LABS: TROPONIN I < 0.01 ng/mL
[2017-05-09 00:56] LABS: ALT/SGPT 39 U/L (7-56); AST/SGOT 39 U/L (14-36); BLOOD UREA NITROGEN 27 mg/dL (7-21)
--- NOTE | 2017-05-09 08:28 | RAD ---
HISTORY: cp COMPARISON: 05/09/2017 FINDINGS: LUNGS: No active pulmonary disease. PLEURA: No significant pleural effusion identified, no pneumothorax apparent. CARDIOVASCULAR: Permanent pacemaker OSSEOUS STRUCTURES: No significant abnormalities. VISUALIZED UPPER ABDOMEN: Normal. OTHER FINDINGS: None. IMPRESSION: No active disease.
[2017-05-09] MEDS ORDERED: Non Formulary Medication (Losartan/Hydrochlorothiazide [Hyzaar 100-25 Tablet] 1 TAB) PO SCH (11:15)
--- NOTE | 2017-05-09 16:13 | CARD ---
APPROVED REPORT EKG Measurement Heart [id number] <Conclusion> Electronic ventricular pacemaker
[2017-05-09] MEDS ORDERED: Promethazine DM 6.25 mg-15 mg/5 ml Syrup PO PRN (17:54)
[2017-05-09 22:43] VITALS: BMI 26.5
[2017-05-09] MEDS ORDERED: Influenza Vaccine 60 mcg/0.5 mL SYR (4YR UP) IM ONE (22:43)
[2017-05-09] MEDS ORDERED: Pneumococcal 23-Valent Vaccine IM ONE (22:43)
--- NOTE | 2017-05-10 01:43 | HP ---
HISTORY OF PRESENT ILLNESS: Patient is a 76-year-old, a patient of Dr. Spear, came to emergency room because of increasing weakness, gets short of breath very easily, gets fatigued also. Patient is not sure that this is because of the virus that she recently got or if something is wrong with her heart. Because of increasing weakness, fatigability and shortness of breath, she came to emergency room for further evaluation. Denies any loss of consciousness. Complains of feeling dizzy at times. She states she had flu almost 2 to 3 weeks ago. She was treated, but still has cough and congestion. Denies any fever or chills. Does complain of decreased appetite. PAST MEDICAL HISTORY: Significant for: 1. Hypertension. 2. Hyperlipidemia. 3. Status post pacemaker placement. 4. History of carotid endarterectomy. 5. History of CA breast. Patient states she had a course of Ceftin and Tessalon Perles given with some relief. ALLERGIES: SHE IS NOT ALLERGIC TO ANY MEDICATIONS. MEDICATIONS: At home, she is on metoprolol 12.5 b.i.d., losartan 125 daily, Plavix 75 daily, aspirin 81 daily and Xanax 0.25 b.i.d. p.r.n. SOCIAL HISTORY: She lives with her daughter. Denies smoking, drinking or alcohol use. REVIEW OF SYSTEMS: Significant for generalized weakness, fatigability, shortness of breath, coughing, congestion. PHYSICAL EXAMINATION: GENERAL: She is awake, alert, and oriented, able to communicate. VITAL SIGNS: She is afebrile, pulse 68, respirations 19, blood pressure 133/81. LUNGS: Bilateral good airflow. No rhonchi or crackles. HEART: S1 and S2 audible ABDOMEN: Soft and nontender. No rebound. No guarding. NEUROLOGIC: Patient is awake and alert, able to communicate. Pacemaker is in place with palpable tenderness. No erythema surrounding it. LABORATORY DATA: WBC 5.3, hemoglobin 13, hematocrit 39, platelet of 265. PT 11.9, INR 1.04. Chemistry, sodium 142, potassium 3.6, chloride 108, CO2 of 21, BUN 27, creatinine 1.9, blood sugar of 119. Urinalysis is negative. X-ray of chest, no active disease. ASSESSMENT: 1. Generalized weakness, probably viral. Patient had recent stress test done in February that was unremarkable. Her echocardiogram done on 03/04/2017 shows good left ventricular function, mild mitral regurgitation and tricuspid regurgitation, and no pulmonary hypertension. 2. Hypertension. 3. Status post pacemaker placement. 4. Status post carotid endarterectomy. 5. Anxiety disorder. PLAN: The patient will be observed overnight. We will follow up her electrolyte and troponin, and if the patient remains stable, we will make the discharge plan in the a.m. Pranay Dunbar MD
[2017-05-10 07:06] VITALS: O2SAT 92
--- NOTE | 2017-05-10 08:21 | CON ---
DATE: 05/09/2017 CARDIOLOGY CONSULTATION HISTORY OF PRESENT ILLNESS: The patient is a 76-year-old woman who presented with progressive fatigue. No shortness of breath noted. Patient does admit to upper respiratory infection over the course of March. PAST MEDICAL HISTORY: Includes history of pacemaker placement for documented third-degree heart block. The patient has a history of hypertension. In addition, she has a history of peripheral vascular disease and is status post carotid stenting. Her recent cardiac workup, which was at the end of February, revealed a stress test that revealed an ejection fraction of 47%. No ischemic areas were noted. Echocardiogram performed at the same time revealed an ejection fraction of 50%. No pulmonary hypertension was noted. SOCIAL HISTORY: The patient does not smoke. REVIEW OF SYSTEMS: Fourteen-point review of systems is reviewed in detail. Patient has focal epigastric discomfort with no angina. Negative dyspnea. Positive fatigue. Negative edema. PHYSICAL EXAMINATION: GENERAL: Patient is in no acute distress. VITAL SIGNS: Blood pressure varies from 133 to 149 systolic. The heart rate in the 60s, which is a paced rhythm. NECK: Negative JVD. LUNGS: Without rales. HEART: With S1, S2. EXTREMITIES: Without edema. LABORATORIES: BUN and creatinine are 27 and 0.9. Troponin is negative x1. Hemoglobin is 13.6 with a white count of 5.3. IMPRESSION: 1. Fatigue. 2. Focal epigastric discomfort. 3. Need to rule out peptic ulcer disease. 4. History of pacemaker placement for third-degree heart block. 5. Hypertension. PLAN: Given these findings, we will give the patient a trial of Protonix. We will obtain serial troponins. The patient can be admitted to Med-Surg floor. Ovi Damon MD
[2017-05-10] MEDS ORDERED: Pantoprazole 40 mg EC Tab PO SCH (10:00)
[2017-05-10 13:25] VITALS: BP 124/71; PULSE 86; RESP 18; TEMP 98.2
--- NOTE | 2017-05-10 17:41 | PN ---
DATE: 05/10/2017 CARDIOLOGY FOLLOWUP SUBJECTIVE: The patient's symptoms are much improved on IV Protonix. PHYSICAL EXAMINATION: VITAL SIGNS: Blood pressure is 140/88, heart rates in the 90s. NECK: Negative JVD. LUNGS: Without rales. HEART: With S1, S2. EXTREMITIES: Without edema. LABORATORY DATA: Troponins are negative x2. IMPRESSION: 1. Fatigue. 2. Likely, peptic ulcer disease. 3. History of pacemaker placement. 4. Hypertension. Given these findings, there is no evidence for acute coronary syndrome. The patient can be discharged from a cardiac perspective. Home Protonix may be helpful to help her symptoms. Ovi Damon MD
--- NOTE | 2017-05-13 08:59 | DS ---
SUBJECTIVE: Patient is a 76-year-old, seen and examined lying in bed, seems to be comfortable. States her epigastric discomfort has almost gone. She feels a lot better, eating and tolerating. PHYSICAL EXAMINATION: VITAL SIGNS: Patient is afebrile, pulse 58, respiration 18, blood pressure 105/58. LUNGS: Bilateral good air flow. No rhonchi or crackles. HEART: S1 and S2 audible. ABDOMEN: Soft, nontender. No rebound. No guarding. NEUROLOGICAL: The patient is awake, alert, oriented, able to communicate. LABORATORY DATA: Two sets of troponin is negative. Urinalysis is unremarkable. ASSESSMENT: 1. Retrosternal chest pain, probably secondary to peptic ulcer disease. 2. History of hypertension. 3. History of third-degree heart block, status post pacemaker placement. 4. Anxiety disorder. PLAN: Patient is being given Protonix 40 mg daily, and she will be scheduled for cardiac rehab. After that, she will be discharged and she will follow up with Dr. Damon and her . Pranay Dunbar MD
== END 2017-05-10 18:30 | disposition home or self-care (01) ==
LOC: ED 22:04 → ERH 05-09 02:02 → 3RSO 05-09 20:03
PROVIDERS: ADMIT Internal Medicine; ATTEND Internal Medicine
DX: K27.9 Peptic ulcer, site unspecified, unspecified as acute or chronic, without hemorrhage or perforation (principal); I10 Essential (primary) hypertension; F41.9 Anxiety disorder, unspecified; E78.5 Hyperlipidemia, unspecified; I08.1 Rheumatic disorders of both mitral and tricuspid valves; I73.9 Peripheral vascular disease, unspecified; J06.9 Acute upper respiratory infection, unspecified; J44.9 Chronic obstructive pulmonary disease, unspecified; Z79.82 Long term (current) use of aspirin; Z85.3 Personal history of malignant neoplasm of breast; Z86.73 Personal history of transient ischemic attack (TIA), and cerebral infarction without residual deficits; Z90.710 Acquired absence of both cervix and uterus; Z95.0 Presence of cardiac pacemaker; Z95.5 Presence of coronary angioplasty implant and graft; Z92.21 Personal history of antineoplastic chemotherapy; Z92.3 Personal history of irradiation
CPT/HCPCS: 36415; 71045; 80053; 81003; 82150; 82550; 83615; 83690; 83880; 84484; 85025; 85610; 85730; 87040; 87086; 93005; 96374; 97116; 97162; 99283; C9113; G0378; G8978; G8979; G8980